=== PATIENT | female | born 1945 | race Caucasian/White ===

== ENCOUNTER → 2017-01-16 | Outpatient (CLI) | payer MEDICARE ==
[~2017-01-16] MED LIST: ASP81CT GT; ATEN-147 GT; SIMV20TA3 PO; TRIA1TAB2 PO
== END ==
LOC: RAD 10:14
PROVIDERS: ATTEND Nurse Practitioner Family
DX: Z12.31 Encounter for screening mammogram for malignant neoplasm of breast (principal)
CPT/HCPCS: 77067

== ENCOUNTER → 2018-01-29 | Outpatient (CLI) | payer MEDICARE ==
--- NOTE | 2018-01-29 12:19 | Diagnostic Imaging Report ---
Indication: Osteopenia. Comparison is made with prior DEXA study from 01/11/2016. Bone mineral analysis of the lumbar spine and both hips was performed. Bone mineral density lumbar spine L2-L4 is 1.199 with T score 0.0. This compares with 1.208 and 0.1. Bone mineral density left femoral neck 0.755 with T score -2.0. This compares with 0.801 and -1.7. Bone mineral density right femoral neck 0.748 with T score -2.1. This compares with 0.760 and -2.0. Impression: Normal bone mineral density of the lumbar spine with osteopenia of bilateral femoral necks. Dictated by: Dictated on workstation # [id number]
--- NOTE | 2018-01-29 14:23 | Diagnostic Imaging Report ---
INDICATION: Routine screening. Comparison is made with prior mammograms from 01/16/2017 and 01/11/2016. 2-D and 3-D bilateral screening mammography was performed with CAD. The current study was also evaluated with a Computer Aided Detection (CAD) system. FINDINGS: Both breasts are heterogeneously dense, limiting the sensitivity of mammography. The parenchymal pattern is stable. No mass or malignant-appearing microcalcifications are seen. The axillae are unremarkable. IMPRESSION: No mammographic features suspicious for malignancy are identified. ACR BI-RADS Category 1: Negative. Result letter will be mailed to the patient. Note: At least 10% of breast cancer is not imaged by mammography. Dictated by: Dictated on workstation # [id number]
== END ==
LOC: RAD 10:24
PROVIDERS: ATTEND Nurse Practitioner Family
DX: Z12.31 Encounter for screening mammogram for malignant neoplasm of breast (principal); M85.88 Other specified disorders of bone density and structure, other site
CPT/HCPCS: 77067; 77080

== ENCOUNTER 2018-11-11 05:52 | Outpatient (CLI) | payer MEDICARE ==
[~2018-11-11] VITALS: Ht 175.3 cm; Wt 72.1 kg
[2018-11-11] MEDS ORDERED: ATEN25TA PO (10:22)
[2018-11-11] MEDS ORDERED: AMLO5TAB9 PO (10:22)
[2018-11-11] MEDS ORDERED: SIMV20TA3 PO (10:22)
== END 2018-11-11 10:25 | disposition home or self-care (01) ==
LOC: PREOP 05:52
PROVIDERS: ATTEND Internal Medicine
DX: Z01.818 Encounter for other preprocedural examination (principal)

== ENCOUNTER 2018-11-13 07:00 | Day surgery (SDC) | payer MEDICARE ==
--- NOTE | 2018-11-09 04:44 | HISTORY AND PHYSICAL ---
DATE OF SERVICE: COLONOSCOPY HISTORY AND PHYSICAL HISTORY OF PRESENT ILLNESS: The patient is a 73-year-old white female referred by Dr. Dudley for screening colonoscopy. She has a past history of colon polyps and a family history of colon cancer. In this case was her mother who was diagnosed in her eighties. The patient last accomplished colonoscopy 5 years ago at which time no evidence for neoplasia was identified. Previous colonoscopy has had revealed some adenomatous polyps. PAST MEDICAL HISTORY: Significant for hypertension and hyperlipidemia with no known history of vascular disease. 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 She lives in [place] during the winter and returned to [place] for the summer with her . She remains physically active exercising at least 5 days a week. PAST SURGICAL HISTORY: Noncontributory. PHYSICAL EXAMINATION: GENERAL: Reveals a fit appearing white female in no acute distress. VITAL SIGNS: Weight stable at 159.4 pounds, blood pressure 140/70. HEENT: Unremarkable. Sclerae nonicteric. Oral cavity reveals Mallampati class 2 pharyngeal configuration with no erythema. CHEST: Clear to auscultation. CARDIOVASCULAR: Reveals a regular rate and rhythm without murmur, S3 or S4. ABDOMEN: Soft, supple without mass, organomegaly or tenderness. EXTREMITIES: Reveal no cyanosis, clubbing or edema. ASSESSMENT AND PLAN: The patient is set up for surveillance colonoscopy due to past history of colon polyps and the fact that her mother was diagnosed with colon cancer in her 80s. The patient was set up for 11/13/2018. Prep instructions with the Suprep kit were given and questions were answered. I thank you for the referral of this pleasant lady. Job ID: [id number] DocumentID: [id number] Dictated Date: 11/05/2018 18:03:22 Slip Laster Date: 11/05/2018 18:32:27 Dictated By: TOO LORENZO MD
[~2018-11-13] VITALS: Ht 175.3 cm; Wt 72.1 kg
[~2018-11-13 07:00] MED LIST changes: +AMLO5TAB9 PO; +ATEN25TA PO
[2018-11-13] MEDS ORDERED: D5 LR IV SOLUTION 1,000 ML IV ONE (07:10)
[2018-11-13] MEDS ORDERED: fentaNYL INJECTION 100 MCG/2 ML AMP ONE (07:27)
[2018-11-13] MEDS ORDERED: MIDAZOLAM 2 MG/2 ML (VERSED) VIAL ONE (07:27)
[2018-11-13] MEDS ORDERED: LIDOCAINE JELLY 2% 6 ML SYRINGE ONE (07:28)
[2018-11-13] MEDS ORDERED: D5 LR IV SOLUTION 1,000 ML IV STA (07:42)
[2018-11-13] MEDS ORDERED: LIDOCAINE JELLY 2% 6 ML SYRINGE MM PRN (07:45)
[2018-11-13] MEDS ORDERED: fentaNYL INJECTION 100 MCG/2 ML AMP IVP ONE (07:45)
[2018-11-13] MEDS ORDERED: MIDAZOLAM 2 MG/2 ML (VERSED) VIAL IVP ONE (07:45)
[2018-11-13 08:19] VITALS: BP 141/72
--- OUTSIDE RECORDS SUMMARY | 2018-11-13 08:20 | XMS REPORT | CCD ---
Author Author [facility] Organization [facility] Address [address] [place] [address] Phone Care Team Providers Care Cpc Name Role Phone PP Unavailable CCM Unavailable Summary Purpose Interface Exchange Insurance Providers Payer name Policy type / Coverage type Covered libertarian ID Effective Begin Date Effective End Date WPS Medicare Part B Medicare Part B [id number] Unknown Unknown [facility] Medicare Part B [id number] Unknown Unknown Family history Father Diagnosis Age At Onset Hypertension Unknown Mother Diagnosis Age At Onset Colon cancer Unknown Social History Social History Element Codes Description Effective Dates Marital status Unknown Phong 03/07/2015 Number of children Unknown 2 03/07/2015 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 03/07/2015 Number of years using tobacco Unknown 1 - 5 03/07/[address]: 842295 Currently drinks alcohol 03/07/2015 Frequency of drinks SNOMED CT: 423273401 1- 4 drinks per week 03/07/2015 Allergies, Adverse Reactions, Alerts Allergies, Adverse Reactions, Alerts data not found Past Medical History Illness Codes Condition Status Onset Date Resolved Date Otalgia, left ear ICD-9: 388.70 ICD-10: H92.02 Active 03/06/2016 Unknown Encounter for screening mammogram for malignant neoplasm of breast ICD-9: V76.12 ICD-10: Z12.31 Active 12/07/2015 Unknown Essential (primary) hypertension ICD-9: 401.1 ICD-10: I10 Active 12/05/2015 Unknown Mixed hyperlipidemia ICD- 9: 272.2 ICD-10: E78.2 Active 12/05/2015 Unknown Hyperlipidemia Unknown Active 03/07/2015 Unknown Hypertension Unknown Active 03/07/2015 Unknown Hyperlipidemia, unspecified ICD-9: 272.4 ICD-10: E78.5 Active 03/06/2015 Unknown Other secondary hypertension ICD-9: 401.9 ICD-10: I15.8 Active 03/06/2015 Unknown VACCIN FOR INFLUENZA ICD- 9: V04.81 Active 03/06/2015 Unknown Problems Condition Codes Effective Dates Condition Status Otalgia, left ear ICD-9: 388.70 ICD-10: H92.02 03/06/2016 Active Encounter for screening mammogram for malignant neoplasm of breast ICD-9: V76.12 ICD-10: Z12.31 12/07/2015 Active Essential (primary) hypertension ICD-9: 401.1 ICD-10: I10 12/05/2015 Active Mixed hyperlipidemia ICD- 9: 272.2 ICD-10: E78.2 12/05/2015 Active Hyperlipidemia Unknown 03/07/2015 Active Hypertension Unknown 03/07/2015 Active Hyperlipidemia, unspecified ICD-9: 272.4 ICD-10: E78.5 03/06/2015 Active Other secondary hypertension ICD-9: 401.9 ICD-10: I15.8 03/06/2015 Active VACCIN FOR INFLUENZA ICD- 9: V04.81 03/06/2015 Active Medications Medication Codes Instructions Start Date Stop Date Status Fill Instructions atenolol 25 mg tablet RxNorm: 797299 1 TABLET(S) PO DAILY 12/30/2016 06/27/2017 Active simvastatin 20 mg tablet RxNorm: 027817 1 TABLET(S) PO QHS 11/20/2016 08/16/2017 Active triamterene 37.5 mg-hydrochlorothiazide 25 mg tablet RxNorm: 811718 1/2 TABLET(S) PO DAILY 08/09/2016 02/04/2017 Active atenolol 25 mg tablet RxNorm: 646753 1 TABLET(S) PO DAILY 07/01/2016 12/27/2016 Inactive Kenalog 40 mg/mL suspension for injection RxNorm: 5085930 Milliliter(s) Inj 03/07/2016 03/07/2016 Inactive atenolol 25 mg tablet RxNorm: 073685 1 TABLET(S) PO DAILY 01/05/2016 06/30/2016 Inactive triamterene 37.5 mg-hydrochlorothiazide 25 mg tablet RxNorm: 489754 1/2 Tablet(s) PO daily 12/06/2015 06/02/2016 Inactive simvastatin 20 mg tablet RxNorm: 755791 1 Tablet(s) PO [facility] 11/30/2015 11/19/2016 Inactive atenolol 25 mg tablet RxNorm: 600131 TAKE 1 TABLET BY MOUTH EVERY DAY 10/31/2015 04/27/2016 Inactive atenolol 25 mg tablet RxNorm: 287903 1 Tablet(s) PO daily 10/31/2015 10/30/2015 Inactive triamterene 37.5 mg-hydrochlorothiazide 25 mg tablet RxNorm: 872410 1 Tablet(s) PO daily 10/31/2015 10/30/2015 Inactive triamterene 37.5 mg-hydrochlorothiazide 25 mg tablet RxNorm: 433559 TAKE 1 TABLET BY MOUTH EVERY MORNING 10/31/2015 12/05/2015 Inactive triamterene 37.5 mg-hydrochlorothiazide 25 mg tablet RxNorm: 303854 1 Tablet(s) PO daily 10/31/2015 10/30/2015 Inactive atenolol 25 mg tablet RxNorm: 747397 1 Tablet(s) PO daily 03/07/2015 10/30/2015 Inactive Vitamin C 500 mg tablet RxNorm: 336448 1 Tablet(s) PO No Start Date Active vitamin E (dl, acetate) 400 unit capsule RxNorm: 644864 1 Capsule(s) PO daily No Start Date Active Multiple Vitamin oral RxNorm: 51915 oral No Start Date Active simvastatin 20 mg tablet RxNorm: 340913 1 Tablet(s) PO daily No Start Date 11/29/2015 Inactive Glucosamine Chondroitin Maximum Strength 500 mg-400 mg capsule RxNorm: 1 Capsule(s) PO daily No Start Date Active Vitamin D3 1,000 unit tablet RxNorm: 025436 Tablet(s) PO No Start Date Active Vitamin B-12 1,000 mcg tablet RxNorm: 908684 1 Tablet(s) PO daily No Start Date Active CoQ-10 oral RxNorm: 72769 oral No Start Date Active Calcium 600 + D(3) 600 mg (1,500 mg)-400 unit tablet RxNorm: 762962 Tablet(s) PO No Start Date Active Maxzide-25mg oral RxNorm: 91403 oral No Start Date 12/06/2015 Inactive atenolol 25 mg tablet RxNorm: 145662 1 Tablet(s) PO daily No Start Date 03/06/2015 Inactive Medication Administered Medication Codes Instructions Start Date Status Kenalog 40 mg/mL suspension for injection RxNorm: 4595858 Milliliter 03/07/2016 No longer Active Immunizations Vaccine Codes Date Status Influenza CVX: 141 03/07/2015 completed Assessments Condition Codes Effective Dates Otalgia, left ear ICD-10: H92.02 ICD-9: 388.70 03/07/2016 Encounter for screening mammogram for malignant neoplasm of breast ICD-10: Z12.31 ICD-9: V76.12 12/08/2015 Essential (primary) hypertension ICD-10: I10 ICD-9: 401.1 12/06/2015 Mixed hyperlipidemia ICD-10: E78.2 ICD-9: 272.2 12/06/2015 Other secondary hypertension ICD-10: I15.8 ICD-9: 401.9 03/07/2015 Hyperlipidemia, unspecified ICD-10: E78.5 ICD-9: 272.4 03/07/2015 VACCIN FOR INFLUENZA ICD-9: V04.81 03/07/2015 Reason For Visit Reason For Visit Effective Dates Notes earache 03/07/2016 hypertension 12/06/2015 hypertension 03/07/2015 Results Observation Observation Code Item Item Code Result Date Comp Metabolic Wvb298 NA 138 mEq/L 12/07/2015 Comp Metabolic Zyn261 K 4.4 mEq/L 12/07/2015 Comp Metabolic Fjc189 CL 103 mEq/L 12/07/2015 Comp Metabolic Qev203 CO2 30.0 mEq/L 12/07/2015 Comp Metabolic Fkq327 ANION GAP 9 12/07/2015 Comp Metabolic Uil712 GLUCOSE 84 mg/dL 12/07/2015 Comp Metabolic Inc691 Creat 1.0 mg/dL 12/07/2015 Comp Metabolic Xhh247 eGFR 58 ml/min/1.73m2 12/07/2015 Comp Metabolic Ikw213 BUN 16 mg/dL 12/07/2015 Comp Metabolic Als077 B/C Ratio 16.0 Ratio 12/07/2015 Comp Metabolic Vcf517 CALCIUM 9.0 mg/dL 12/07/2015 Comp Metabolic Pwh679 ALK PHOS 59 U/L 12/07/2015 Comp Metabolic Loz300 AST(SGOT) 18 U/L 12/07/2015 Comp Metabolic Dab803 ALT(SGPT) 14 U/L 12/07/2015 Comp Metabolic Vzi305 BILI T 0.5 mg/dL 12/07/2015 Comp Metabolic Ocf208 ALBUMIN 3.8 g/dL 12/07/2015 Comp Metabolic Maa698 TPRO 6.2 g/dL 12/07/2015 Comp Metabolic Ofp428 GLOB 2.4 g/dL 12/07/2015 Comp Metabolic Ukt858 A/G Ratio 1.5 Ratio 12/07/2015 Comp Metabolic Jeu442 Osmo 276 mOsmo 12/07/2015 Lipid Ord30 CHOL 168 mg/dL 12/07/2015 Lipid Ord30 HDL 68.0 mg/dl 12/07/2015 Lipid Ord30 TRIG 74 mg/dL 12/07/2015 Lipid Ord30 LDL 85 mg/dL 12/07/2015 Lipid Ord30 C/HDL 2.5 Ratio 12/07/2015 Cbc With Differential Ord2 WBC 5.42 K/ul 12/07/2015 Cbc With Differential Ord2 RBC 3.97 M/ul 12/07/2015 Cbc With Differential Ord2 HGB 11.8 g/dl 12/07/2015 Cbc With Differential Ord2 Neut% 61.9 % 12/07/2015 Cbc With Differential Ord2 HCT 36.5 % 12/07/2015 Cbc With Differential Ord2 MCV 91.9 fl 12/07/2015 Cbc With Differential Ord2 Lymph% 26.0 % 12/07/2015 Cbc With Differential Ord2 MCH 29.7 pg 12/07/2015 Cbc With Differential Ord2 [place]% 9.4 % 12/07/2015 Cbc With Differential Ord2 MCHC 32.3 pg 12/07/2015 Cbc With Differential Ord2 Eos% 2.0 % 12/07/2015 Cbc With Differential Ord2 PLT 363 K/ul 12/07/2015 Cbc With Differential Ord2 Baso% 0.7 % 12/07/2015 Cbc With Differential Ord2 RDW 13.0 % 12/07/2015 Cbc With Differential Ord2 Neut ABS# 3.35 K/ul 12/07/2015 Cbc With Differential Ord2 Lymph ABS# 1.41 K/ul 12/07/2015 Cbc With Differential Ord2 [place] ABS# 0.5 K/ul 12/07/2015 Cbc With Differential Ord2 Eos ABS# 0.1 K/ul 12/07/2015 Cbc With Differential Ord2 Baso ABS# 0.0 K/ul 12/07/2015 Tsh Ord6 hTSH II 1.10 uIU/mL 12/07/2015 Tsh Ord6 hTSH II 0.87 uIU/mL 03/07/2015 Lipid Ord30 CHOL 204 mg/dL 03/07/2015 Lipid Ord30 HDL 86.0 mg/dl 03/07/2015 Lipid Ord30 TRIG 95 mg/dL 03/07/2015 Lipid Ord30 LDL 99 mg/dL 03/07/2015 Lipid Ord30 C/HDL 2.4 Ratio 03/07/2015 Comp Metabolic Iyn887 NA 136 mEq/L 03/07/2015 Comp Metabolic Jql339 K 4.0 mEq/L 03/07/2015 Comp Metabolic Zrz338 CL 100 mEq/L 03/07/2015 Comp Metabolic Dtj364 CO2 31.0 mEq/L 03/07/2015 Comp Metabolic Ckb449 ANION GAP 9 03/07/2015 Comp Metabolic Wmg590 GLUCOSE 93 mg/dL 03/07/2015 Comp Metabolic Hne450 Creat 1.1 mg/dL 03/07/2015 Comp Metabolic Oqs138 eGFR 55 ml/min/1.73m2 03/07/2015 Comp Metabolic Nal864 BUN 16 mg/dL 03/07/2015 Comp Metabolic Zjp295 B/C Ratio 15.2 Ratio 03/07/2015 Comp Metabolic Whc285 CALCIUM 9.7 mg/dL 03/07/2015 Comp Metabolic Xwn365 ALK PHOS 63 U/L 03/07/2015 Comp Metabolic Dth809 AST(SGOT) 21 U/L 03/07/2015 Comp Metabolic Gly352 ALT(SGPT) 16 U/L 03/07/2015 Comp Metabolic Yen975 BILI T 0.7 mg/dL 03/07/2015 Comp Metabolic Lhj326 ALBUMIN 4.3 g/dL 03/07/2015 Comp Metabolic Plo524 TPRO 7.0 g/dL 03/07/2015 Comp Metabolic Edc942 GLOB 2.7 g/dL 03/07/2015 Comp Metabolic Bib607 A/G Ratio 1.6 Ratio 03/07/2015 Comp Metabolic Baq342 Osmo 273 mOsmo 03/07/2015 Cbc With Differential Ord2 WBC 6.5 K/uL 03/07/2015 Cbc With Differential Ord2 LYM 2.1 K/uL 03/07/2015 Cbc With Differential Ord2 LYM% 32.0 % 03/07/2015 Cbc With Differential Ord2 NEUT/GRAN 4.1 K/uL 03/07/2015 Cbc With Differential Ord2 NEUT/GRAN % 62.7 % 03/07/2015 Cbc With Differential Ord2 MID 0.3 K/uL 03/07/2015 Cbc With Differential Ord2 MID% 5.3 % 03/07/2015 Cbc With Differential Ord2 RBC 4.41 M/uL 03/07/2015 Cbc With Differential Ord2 HGB 12.9 g/dL 03/07/2015 Cbc With Differential Ord2 HCT 40.8 % 03/07/2015 Cbc With Differential Ord2 MCV 93 fL 03/07/2015 Cbc With Differential Ord2 MCH 29 pg 03/07/2015 Cbc With Differential Ord2 MCHC 32 g/dL 03/07/2015 Cbc With Differential Ord2 PLT 353 K/uL 03/07/2015 Cbc With Differential Ord2 RDW 13.2 % 03/07/2015 Review of Systems System Result Effective Dates Constitutional No recent illness 03/07/2016 Constitutional No night sweats 03/07/2016 Constitutional No anorexia 03/07/2016 Constitutional No chills 03/07/2016 Constitutional No diaphoresis 03/07/2016 Constitutional No fatigue 03/07/2016 Constitutional No fever 03/07/2016 Constitutional No insomnia 03/07/2016 Constitutional No malaise 03/07/2016 Constitutional No weight loss 03/07/2016 Constitutional No weight gain 03/07/2016 Eyes No eye discharge 03/07/2016 Eyes No eye erythema 03/07/2016 Ears/Nose/Throat/Neck No dizziness 03/07/2016 Ears/Nose/Throat/Neck No headache 03/07/2016 Ears/Nose/Throat/Neck No nasal discharge 03/07/2016 Ears/Nose/Throat/Neck otalgia 03/07/2016 Cardiovascular No chest pain/pressure 03/07/2016 Respiratory No cough 03/07/2016 Gastrointestinal No abdominal pain 03/07/2016 Gastrointestinal No constipation 03/07/2016 Gastrointestinal No diarrhea 03/07/2016 Genitourinary/Nephrology No dysuria 03/07/2016 Dermatologic No rash 03/07/2016 Dermatologic No sores 03/07/2016 Neurologic No dizziness 03/07/2016 Neurologic No headache 03/07/2016 Musculoskeletal No stiffness 03/07/2016 Musculoskeletal No swelling 03/07/2016 Cardiovascular No syncope 03/07/2016 Cardiovascular No fatigue 03/07/2016 Respiratory No dyspnea 03/07/2016 Constitutional No recent illness 12/06/2015 Constitutional No chills 12/06/2015 Constitutional No fatigue 12/06/2015 Constitutional No fever 12/06/2015 Constitutional No insomnia 12/06/2015 Constitutional No malaise 12/06/2015 Eyes No blindness 12/06/2015 Eyes No vision change 12/06/2015 Ears/Nose/Throat/Neck No dental pain 12/06/2015 Ears/Nose/Throat/Neck No dizziness 12/06/2015 Ears/Nose/Throat/Neck No dysphagia 12/06/2015 Ears/Nose/Throat/Neck No headache 12/06/2015 Ears/Nose/Throat/Neck No hearing loss 12/06/2015 Ears/Nose/Throat/Neck No nasal allergies 12/06/2015 Ears/Nose/Throat/Neck No sore throat 12/06/2015 Ears/Nose/Throat/Neck No postnasal drip 12/06/2015 Ears/Nose/Throat/Neck No sinus congestion 12/06/2015 Cardiovascular No chest pain/pressure 12/06/2015 Cardiovascular No dyspnea 12/06/2015 Cardiovascular No edema 12/06/2015 Cardiovascular No exercise intolerance 12/06/2015 Cardiovascular No fatigue 12/06/2015 Cardiovascular No near-syncope/dizziness 12/06/2015 Respiratory No chest tightness 12/06/2015 Respiratory No cough 12/06/2015 Respiratory No dyspnea 12/06/2015 Respiratory No pedal edema 12/06/2015 Gastrointestinal No abdominal pain 12/06/2015 Gastrointestinal No constipation 12/06/2015 Gastrointestinal No diarrhea 12/06/2015 Gastrointestinal No gastroesophageal reflux 12/06/2015 Gastrointestinal No nausea 12/06/2015 Gastrointestinal No vomiting 12/06/2015 Genitourinary/Nephrology No dysuria 12/06/2015 Genitourinary/Nephrology No nocturia 12/06/2015 Genitourinary/Nephrology No urinary incontinence 12/06/2015 Musculoskeletal No stiffness 12/06/2015 Musculoskeletal No swelling 12/06/2015 Musculoskeletal No muscle weakness 12/06/2015 Musculoskeletal No myalgias 12/06/2015 Dermatologic mole change 12/06/2015 Dermatologic No rash 12/06/2015 Dermatologic No sores 12/06/2015 Dermatologic No scar 12/06/2015 Neurologic No dizziness 12/06/2015 Neurologic No headache 12/06/2015 Neurologic No neck pain 12/06/2015 Neurologic No syncope 12/06/2015 Psychiatric No anxiety 12/06/2015 Psychiatric No depression 12/06/2015 Constitutional No recent illness 03/07/2015 Constitutional No chills 03/07/2015 Constitutional No fatigue 03/07/2015 Constitutional No fever 03/07/2015 Constitutional No insomnia 03/07/2015 Constitutional No malaise 03/07/2015 Eyes No blindness 03/07/2015 Eyes No vision change 03/07/2015 Ears/Nose/Throat/Neck No dental pain 03/07/2015 Ears/Nose/Throat/Neck No dizziness 03/07/2015 Ears/Nose/Throat/Neck No dysphagia 03/07/2015 Ears/Nose/Throat/Neck No headache 03/07/2015 Ears/Nose/Throat/Neck No hearing loss 03/07/2015 Ears/Nose/Throat/Neck No nasal allergies 03/07/2015 Ears/Nose/Throat/Neck No sore throat 03/07/2015 Ears/Nose/Throat/Neck No postnasal drip 03/07/2015 Ears/Nose/Throat/Neck No sinus congestion 03/07/2015 Cardiovascular No chest pain/pressure 03/07/2015 Cardiovascular No dyspnea 03/07/2015 Cardiovascular No edema 03/07/2015 Cardiovascular No exercise intolerance 03/07/2015 Cardiovascular No fatigue 03/07/2015 Cardiovascular No near-syncope/dizziness 03/07/2015 Respiratory No chest tightness 03/07/2015 Respiratory No cough 03/07/2015 Respiratory No dyspnea 03/07/2015 Respiratory No pedal edema 03/07/2015 Gastrointestinal No abdominal pain 03/07/2015 Gastrointestinal No constipation 03/07/2015 Gastrointestinal No diarrhea 03/07/2015 Gastrointestinal No gastroesophageal reflux 03/07/2015 Gastrointestinal No nausea 03/07/2015 Gastrointestinal No vomiting 03/07/2015 Genitourinary/Nephrology No dysuria 03/07/2015 Genitourinary/Nephrology No nocturia 03/07/2015 Genitourinary/Nephrology No urinary incontinence 03/07/2015 Musculoskeletal No stiffness 03/07/2015 Musculoskeletal No swelling 03/07/2015 Musculoskeletal No muscle weakness 03/07/2015 Musculoskeletal No myalgias 03/07/2015 Dermatologic No rash 03/07/2015 Dermatologic No sores 03/07/2015 Dermatologic No scar 03/07/2015 Neurologic No dizziness 03/07/2015 Neurologic No headache 03/07/2015 Neurologic No neck pain 03/07/2015 Neurologic No syncope 03/07/2015 Psychiatric No anxiety 03/07/2015 Psychiatric No depression 03/07/2015 Dermatologic mole change 03/07/2015 Physical Exam Exam Name System Name Item Name Status Result Effective Dates Notes Full Exam - ENT Constitutional general appearance Overall: in no acute distress 03/07/2016 None Full Exam - ENT Eyes ocular motility Overall: normal gaze alignment 03/07/2016 None Full Exam - ENT Eyes ocular motility Overall: extraocular movement intact 03/07/2016 None Full Exam - ENT Ears/Nose/Throat otoscopic exam Overall: external auditory canals normal 03/07/2016 None Full Exam - ENT Neck inspection of neck Overall: normal appearance 03/07/2016 None Full Exam - ENT Respiratory inspection Overall: no retractions 03/07/2016 None Full Exam - ENT Respiratory inspection Overall: normal rate 03/07/2016 None Full Exam - ENT Cardiovascular auscultation of heart Overall: regular rate 03/07/2016 None Full Exam - ENT Cardiovascular auscultation of heart Overall: normal heart sounds 03/07/2016 None Full Exam - ENT Cardiovascular auscultation of heart Overall: no murmurs 03/07/2016 None Full Exam - ENT Abdomen abdominal exam Overall: normal bowel sounds 03/07/2016 None Full Exam - ENT Integument inspection of skin Overall: no rash, lesions 03/07/2016 None Full Exam - ENT Neurologic mood and affect Overall: normal affect 03/07/2016 None Full Exam - ENT Neurologic mood and affect Overall: normal mood 03/07/2016 None Full Exam - ENT Ears/Nose/Throat otoscopic exam Otorrhea: absent 03/07/2016 None Full Exam - ENT Ears/Nose/Throat otoscopic exam Perforation: absent 03/07/2016 None Full Exam - ENT Ears/Nose/Throat otoscopic exam Right tympanic membrane: intact 03/07/2016 None Full Exam - ENT Ears/Nose/Throat otoscopic exam Right tympanic membrane: mobile 03/07/2016 None Full Exam - ENT Ears/Nose/Throat otoscopic exam Left external auditory canal: minimal cerumen 03/07/2016 None Full Exam - ENT Ears/Nose/Throat otoscopic exam Left external auditory canal: nontender 03/07/2016 None Full Exam - ENT Ears/Nose/Throat otoscopic exam Right external auditory canal: minimal cerumen 03/07/2016 None Full Exam - ENT Ears/Nose/Throat otoscopic exam Right external auditory canal: nontender 03/07/2016 None Full Exam - ENT Respiratory inspection Retractions: absent 03/07/2016 None Full Exam - ENT Cardiovascular auscultation of heart Rate: normal rate 03/07/2016 None Full Exam - ENT Cardiovascular auscultation of heart Rhythm: regular rhythm 03/07/2016 None Full Exam - ENT Abdomen abdominal exam Overall: no tenderness 03/07/2016 None Full Exam - ENT Ears/Nose/Throat otoscopic exam Left tympanic membrane: air-fluid level 03/07/2016 None Full Exam - General 1994 Constitutional general appearance Development: well developed 12/06/2015 None Full Exam - General 1994 Constitutional general appearance Development: appears stated age 0612/06/2015 None Full Exam - General 1994 Constitutional general appearance Hygiene/Attention to Grooming: good hygiene 12/06/2015 None Full Exam - General 1994 Eyes conjunctiva/eyelids Overall: conjunctiva clear 12/06/2015 None Full Exam - General 1994 Eyes conjunctiva/eyelids Overall: cornea clear 12/06/2015 None Full Exam - General 1994 Eyes conjunctiva/eyelids Overall: eyelids normal 12/06/2015 None Full Exam - General 1994 Eyes pupils and irises Overall: pupils equal, round, reactive to light and accomodation 12/06/2015 None Full Exam - General 1994 Ears/Nose/Throat otoscopic exam Overall: external auditory canals clear 12/06/2015 None Full Exam - General 1994 Ears/Nose/Throat otoscopic exam Overall: tympanic membranes clear 12/06/2015 None Full Exam - General 1994 Ears/Nose/Throat lips/teeth/gingiva Overall: benign lips 12/06/2015 None Full Exam - General 1994 Ears/Nose/Throat lips/teeth/gingiva Overall: normal dentition 12/06/2015 None Full Exam - General 1994 Ears/Nose/Throat oral cavity/pharynx/larynx Overall: oral mucosa clear 12/06/2015 None Full Exam - General 1994 Ears/Nose/Throat oral cavity/pharynx/larynx Overall: oropharyngeal mucosa clear 12/06/2015 None Full Exam - General 1994 Ears/Nose/Throat oral cavity/pharynx/larynx Overall: hypopharynx benign 12/06/2015 None Full Exam - General 1994 Ears/Nose/Throat oral cavity/pharynx/larynx Overall: no masses 12/06/2015 None Full Exam - General 1994 Respiratory auscultation Overall: breath sounds clear bilaterally 12/06/2015 None Full Exam - General 1994 Respiratory respiratory effort/rhythm Overall: no retractions 12/06/2015 None Full Exam - General 1994 Respiratory respiratory effort/rhythm Overall: normal rate 12/06/2015 None Full Exam - General 1994 Cardiovascular extremities Overall: no clubbing 12/06/2015 None Full Exam - General 1994 Cardiovascular auscultation of heart Overall: regular rate 12/06/2015 None Full Exam - General 1994 Cardiovascular auscultation of heart Overall: normal heart sounds 12/06/2015 None Full Exam - General 1994 Abdomen abdominal exam Overall: no tenderness 12/06/2015 None Full Exam - General 1994 Abdomen abdominal exam Overall: normal bowel sounds 12/06/2015 None Full Exam - General 1994 Lymphatic neck nodes Overall: anterior cervical chain benign 12/06/2015 None Full Exam - General 1994 Lymphatic neck nodes Overall: posterior cervical chain benign 12/06/2015 None Full Exam - General 1994 Musculoskeletal spine, ribs and pelvis Overall: spine benign 12/06/2015 None Full Exam - General 1994 Musculoskeletal spine, ribs and pelvis Overall: sacroiliac joint benign 12/06/2015 None Full Exam - General 1994 Musculoskeletal spine, ribs and pelvis Overall: good posture 12/06/2015 None Full Exam - General 1994 Musculoskeletal head and neck Overall: head atraumatic 12/06/2015 None Full Exam - General 1994 Musculoskeletal head and neck Overall: cervical spine benign 12/06/2015 None Full Exam - General 1994 Integument inspection of skin Overall: few scattered moles, no gross abnormalities 12/06/2015 None Full Exam - General 1994 Neurologic deep tendon reflexes Overall: deep tendon reflexes intact 12/06/2015 None Full Exam - General 1994 Neurologic cranial nerves Overall: crainial nerves 2 - 12 grossly intact 12/06/2015 None Full Exam - General 1994 Psychiatric orientation/consciousness Overall: oriented to person, place and time 12/06/2015 None Full Exam - General 1994 Psychiatric mood and affect Overall: normal mood and affect 12/06/2015 None Full Exam - General 1994 Constitutional general appearance Development: well developed 03/07/2015 None Full Exam - General 1994 Constitutional general appearance Development: appears stated age 0903/07/2015 None Full Exam - General 1994 Constitutional general appearance Hygiene/Attention to Grooming: good hygiene 03/07/2015 None Full Exam - General 1994 Eyes conjunctiva/eyelids Overall: conjunctiva clear 03/07/2015 None Full Exam - General 1994 Eyes conjunctiva/eyelids Overall: cornea clear 03/07/2015 None Full Exam - General 1994 Eyes conjunctiva/eyelids Overall: eyelids normal 03/07/2015 None Full Exam - General 1994 Eyes pupils and irises Overall: pupils equal, round, reactive to light and accomodation 03/07/2015 None Full Exam - General 1994 Ears/Nose/Throat otoscopic exam Overall: external auditory canals clear 03/07/2015 None Full Exam - General 1994 Ears/Nose/Throat otoscopic exam Overall: tympanic membranes clear 03/07/2015 None Full Exam - General 1994 Ears/Nose/Throat lips/teeth/gingiva Overall: benign lips 03/07/2015 None Full Exam - General 1994 Ears/Nose/Throat lips/teeth/gingiva Overall: normal dentition 03/07/2015 None Full Exam - General 1994 Ears/Nose/Throat oral cavity/pharynx/larynx Overall: oral mucosa clear 03/07/2015 None Full Exam - General 1994 Ears/Nose/Throat oral cavity/pharynx/larynx Overall: oropharyngeal mucosa clear 03/07/2015 None Full Exam - General 1994 Ears/Nose/Throat oral cavity/pharynx/larynx Overall: hypopharynx benign 03/07/2015 None Full Exam - General 1994 Ears/Nose/Throat oral cavity/pharynx/larynx Overall: no masses 03/07/2015 None Full Exam - General 1994 Respiratory auscultation Overall: breath sounds clear bilaterally 03/07/2015 None Full Exam - General 1994 Respiratory respiratory effort/rhythm Overall: no retractions 03/07/2015 None Full Exam - General 1994 Respiratory respiratory effort/rhythm Overall: normal rate 03/07/2015 None Full Exam - General 1994 Cardiovascular extremities Overall: no clubbing 03/07/2015 None Full Exam - General 1994 Cardiovascular auscultation of heart Overall: regular rate 03/07/2015 None Full Exam - General 1994 Cardiovascular auscultation of heart Overall: normal heart sounds 03/07/2015 None Full Exam - General 1994 Abdomen abdominal exam Overall: no tenderness 03/07/2015 None Full Exam - General 1994 Abdomen abdominal exam Overall: normal bowel sounds 03/07/2015 None Full Exam - General 1994 Lymphatic neck nodes Overall: anterior cervical chain benign 03/07/2015 None Full Exam - General 1994 Lymphatic neck nodes Overall: posterior cervical chain benign 03/07/2015 None Full Exam - General 1994 Musculoskeletal spine, ribs and pelvis Overall: spine benign 03/07/2015 None Full Exam - General 1994 Musculoskeletal spine, ribs and pelvis Overall: sacroiliac joint benign 03/07/2015 None Full Exam - General 1994 Musculoskeletal spine, ribs and pelvis Overall: good posture 03/07/2015 None Full Exam - General 1994 Musculoskeletal head and neck Overall: head atraumatic 03/07/2015 None Full Exam - General 1994 Musculoskeletal head and neck Overall: cervical spine benign 03/07/2015 None Full Exam - General 1994 Integument inspection of skin Overall: few scattered moles, no gross abnormalities 03/07/2015 None Full Exam - General 1994 Neurologic deep tendon reflexes Overall: deep tendon reflexes intact 03/07/2015 None Full Exam - General 1994 Neurologic cranial nerves Overall: crainial nerves 2 - 12 grossly intact 03/07/2015 None Full Exam - General 1994 Psychiatric orientation/consciousness Overall: oriented to person, place and time 03/07/2015 None Full Exam - General 1994 Psychiatric mood and affect Overall: normal mood and affect 03/07/2015 None Procedures Procedure Codes Date TRIAMCINOLONE ACET INJ NOS CPT-4: [id number] 03/07/2016 ADMIN INFLUENZA VIRUS VAC Formatting Model/CDA Sections, Assigned to CPT- 4: K2935Kimppth 03/07/2015 FLU VACC 4 ISIDORO 3 YRS PLUS IM SNOMED CT: 76314509 CPT-4: 33577Ndldbbg 03/07/2015 Vital Signs Date Vital 03/07/2016 Blood Pressure 1: 130/92 Code: 8480-6 Heart Rate 1: 72 bpm Height: Respiratory Rate: 16 bpm SpO2: 97% Temperature: 36.6 (C) / 97.9 (F) Weight: 12/06/2015 Blood Pressure 1: 122/70 Code: 8480-6 BMI: 24.9 Code: 92421-3 Heart Rate 1: 63 bpm Height: 5'8" SpO2: 97% Weight: 166 lbs 03/07/2015 Blood Pressure 1: 130/76 Code: 8480-6 BMI: 25.4 Code: 15531-9 Heart Rate 1: 58 bpm Height: 5'8" SpO2: 99% Weight: 169 lbs 5 oz Functional Status No Functional Status data History of Present Illness Symptom Name Status Result Effective Date Notes earache Severity moderate 03/07/2016 None earache Frequency of Episodes decreasing 03/07/2016 None earache Length of Episodes 1 days 03/07/2016 None earache Location left ear 03/07/2016 None earache Quality sharp pain 03/07/2016 None earache Onset and Resolution ongoing 03/07/2016 None earache Onset of Symptom 1 days ago 03/07/2016 None earache Alleviating Factors medication 03/07/2016 APAP 1000mg BID earache Triggers no known triggers 03/07/2016 sharp pain comes and goes within seconds hypertension Onset of Symptom during adulthood 12/06/2015 None hypertension Blood Pressure Values not checking blood pressure at home 12/06/2015 None hypertension Pertinent Findings Denies dizziness 12/06/2015 None hypertension Pertinent Findings Denies edema 12/06/2015 None hypertension Onset and Resolution ongoing 12/06/2015 None hypertension Pertinent Findings Denies dyspnea 12/06/2015 None hypertension Alleviating Factors medication 12/06/2015 None hyperlipidemia Onset and Resolution gradual in onset 12/06/2015 None hyperlipidemia Onset and Resolution ongoing 12/06/2015 None hyperlipidemia Onset of Symptom during adulthood 12/06/2015 None hyperlipidemia Alleviating Factors medication 12/06/2015 None hyperlipidemia Exacerbating Factors diet 12/06/2015 None hypertension Quality stable 12/06/2015 None hypertension Onset of Symptom during adulthood 03/07/2015 None hypertension Blood Pressure Values not checking blood pressure at home 03/07/2015 None hypertension Pertinent Findings Denies dizziness 03/07/2015 None hypertension Pertinent Findings Denies edema 03/07/2015 None hyperlipidemia Onset of Symptom 6 years ago 03/07/2015 None Advance Directives No Advance Directive data Encounters Encounter Performer Location Codes Date ([id number]) 11435 EST. PATIENT, LEVEL III Diagnosis: Otalgia, left ear[ICD10: H92.02] Mary Dudley MD, [facility] CPT- 4: 52989 03/07/2016 ([id number]) 97561 EST. PATIENT, LEVEL III Diagnosis: Essential (primary) hypertension[ICD10: I10] Diagnosis: Mixed hyperlipidemia[ICD10: E78.2] [facility] CPT- 4: 91909 12/06/2015 ([id number]) OFFICE VISIT, NEW - LEVEL 4 Diagnosis: Other secondary hypertension[ICD10: I15.8] Diagnosis: Hyperlipidemia, unspecified[ICD10: E78.5] [facility] CPT-4: 72318 03/07/2015 Plan of Care Planned Activity Notes Codes Status Date Visit Plan: Left earache-suspect trigeminal neuralgia-kenalog injection today in the office-RX for oral prednisone taper provided and instructed on use-call friday with update on symptoms-patient verbalized understanding of plan. 03/07/2016 Appointment: Mary Michael WPtel: [phone] [phone] (10 min) Simple 03/07/2016 Patient Education: Patient Medication Summary Completed 03/07/2016 Patient Education: Patient Medication Summary Completed 12/08/2015 Care Plan: SCREENINGMAMMOGRAPHYDIGITAL LOINC : 66377-0 Pending 12/08/2015 Visit Plan: Hypertension - well controlled - continue with current medications, continue with no added salt diet. Pt has been encouraged to exercise daily.The pt has been advised to call the office if there are any acute concerns about change in blood pressure readings at home.Hyperlipidemia - pt has been counseled about appropriate diet, exercise, and need for low fat food choices. I have discussed the need for the patient to take medications as prescribed. If the patient has negative side effects from the medication, they are to CALL the office and not abruptly discontinue the medication without discussion with a practitioner in the office. We will check labs in 3-6 months for follow up on the patient's chronic medical problem and to assure normal liver response to medications. 12/06/2015 Patient Education: Patient Medication Summary Completed 12/06/2015 App[facility]ment: [facility] [phone] [facility] (15 min) Moderate 11/22/2015 Visit Plan: Hypertension - well controlled - continue with current medications, continue with no added salt diet. Pt has been encouraged to exercise daily.The pt has been advised to call the office if there are any acute concerns about change in blood pressure readings at home.Hyperlipidemia - pt has been counseled about appropriate diet, exercise, and need for low fat food choices. I have discussed the need for the patient to take medications as prescribed. If the patient has negative side effects from the medication, they are to CALL the office and not abruptly discontinue the medication without discussion with a practitioner in the office. We will check labs in 3-6 months for follow up on the patient's chronic medical problem and to assure normal liver response to medications. 03/07/2015 Appointment: Ethel Dudley WPtel: [facility] [place] New Patient 03/07/2015 Patient Education: Patient Medication Summary Completed 03/07/2015 Patient Education: Hypertension Completed 03/07/2015 Instructions Comment . Hypertension - well controlled - continue with current medications, continue with no added salt diet. Pt has been encouraged to exercise daily. The pt has been advised to call the office if there are any acute concerns about change in blood pressure readings at home. Hyperlipidemia - pt has been counseled about appropriate diet, exercise, and need for low fat food choices. I have discussed the need for the patient to take medications as prescribed. If the patient has negative side effects from the medication, they are to CALL the office and not abruptly discontinue the medication without discussion with a practitioner in the office. We will check labs in 3-6 months for follow up on the patient's chronic medical problem and to assure normal liver response to medications. . Hypertension - well controlled - continue with current medications, continue with no added salt diet. Pt has been encouraged to exercise daily. The pt has been advised to call the office if there are any acute concerns about change in blood pressure readings at home. Hyperlipidemia - pt has been counseled about appropriate diet, exercise, and need for low fat food choices. I have discussed the need for the patient to take medications as prescribed. If the patient has negative side effects from the medication, they are to CALL the office and not abruptly discontinue the medication without discussion with a practitioner in the office. We will check labs in 3-6 months for follow up on the patient's chronic medical problem and to assure normal liver response to medications. Kenalog Injection OTC antihistamine . Left earache-suspect trigeminal neuralgia-kenalog injection today in the office- RX for oral prednisone taper provided and instructed on use-call friday with update on symptoms-patient verbalized understanding of plan.
--- OUTSIDE RECORDS SUMMARY | 2018-11-13 08:21 | XMS REPORT | CCD ---
Author Author [facility] Organization [facility] Address [address] [place] [address] Phone Care Team Providers Care Director Oracle Name Role Phone PP Unavailable CCM Unavailable Summary Purpose Interface Exchange Insurance Providers Payer name Policy type / Coverage type Covered democrat ID Effective Begin Date Effective End Date WPS Medicare Part B Medicare Part B [id number] Unknown Unknown [facility] Medicare Part B [id number] Unknown Unknown Family history Father Diagnosis Age At Onset Hypertension Unknown Mother Diagnosis Age At Onset Colon cancer Unknown Social History Social History Element Codes Description Effective Dates Marital status Unknown Phong 03/07/2015 Number of children Unknown 2 03/07/2015 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 03/07/2015 Number of years using tobacco Unknown 1 - 5 03/07/[address]: 730987 Currently drinks alcohol 03/07/2015 Frequency of drinks SNOMED CT: 610971613 1- 4 drinks per week 03/07/2015 Allergies, [...] Start Date Stop Date Status Fill Instructions simvastatin 20 mg tablet RxNorm: 895709 1 TABLET(S) PO QHS 11/20/2016 08/16/2017 Active triamterene 37.5 mg-hydrochlorothiazide 25 mg tablet RxNorm: 464544 1/2 TABLET(S) PO DAILY 08/09/2016 02/04/2017 Active atenolol 25 mg tablet RxNorm: 577945 1 TABLET(S) PO DAILY 07/01/2016 12/27/2016 Active Kenalog 40 mg/mL suspension for injection RxNorm: 7133599 Milliliter(s) Inj 03/07/2016 03/07/2016 Inactive atenolol 25 mg tablet RxNorm: 132696 1 TABLET(S) PO DAILY 01/05/2016 06/30/2016 Inactive triamterene 37.5 mg-hydrochlorothiazide 25 mg tablet RxNorm: 690161 1/2 Tablet(s) PO daily 12/06/2015 06/02/2016 Inactive simvastatin 20 mg tablet RxNorm: 997805 1 Tablet(s) PO QHS 11/30/2015 11/19/2016 Inactive atenolol 25 mg tablet RxNorm: 260584 TAKE 1 TABLET BY MOUTH EVERY DAY 10/31/2015 04/27/2016 Inactive atenolol 25 mg tablet RxNorm: 147619 1 Tablet(s) PO daily 10/31/2015 10/30/2015 Inactive triamterene 37.5 mg-hydrochlorothiazide 25 mg tablet RxNorm: 529018 1 Tablet(s) PO daily 10/31/2015 10/30/2015 Inactive triamterene 37.5 mg-hydrochlorothiazide 25 mg tablet RxNorm: 494122 TAKE 1 TABLET BY MOUTH EVERY MORNING 10/31/2015 12/05/2015 Inactive triamterene 37.5 mg-hydrochlorothiazide 25 mg tablet RxNorm: 715053 1 Tablet(s) PO daily 10/31/2015 10/30/2015 Inactive atenolol 25 mg tablet RxNorm: 691704 1 Tablet(s) PO daily 03/07/2015 10/30/2015 Inactive Vitamin C 500 mg tablet RxNorm: 780290 1 Tablet(s) PO No Start Date Active vitamin E (dl, acetate) 400 unit capsule RxNorm: 370553 1 Capsule(s) PO daily No Start Date Active Multiple Vitamin oral RxNorm: 22456 oral No Start Date Active simvastatin 20 mg tablet RxNorm: 666534 1 Tablet(s) PO daily No Start Date 11/29/2015 Inactive Glucosamine Chondroitin Maximum Strength 500 mg-400 mg capsule RxNorm: 1 Capsule(s) PO daily No Start Date Active Vitamin D3 1,000 unit tablet RxNorm: 715833 Tablet(s) PO No Start Date Active Vitamin B-12 1,000 mcg tablet RxNorm: 844149 1 Tablet(s) PO daily No Start Date Active CoQ-10 oral RxNorm: 68846 oral No Start Date Active Calcium 600 + D(3) 600 mg (1,500 mg)-400 unit tablet RxNorm: 515233 Tablet(s) PO No Start Date Active Maxzide-25mg oral RxNorm: 35341 oral No Start Date 12/06/2015 Inactive atenolol 25 mg tablet RxNorm: 644257 1 Tablet(s) PO daily No Start Date 03/06/2015 Inactive Medication Administered Medication Codes Instructions Start Date Status Kenalog 40 mg/mL suspension for injection RxNorm: 3899163 Milliliter 03/07/2016 No longer Active Immunizations Vaccine [...] Item Item Code Result Date Comp Metabolic Eet279 NA 138 mEq/L 12/07/2015 Comp Metabolic Lfj445 K 4.4 mEq/L 12/07/2015 Comp Metabolic Dhs403 CL 103 mEq/L 12/07/2015 Comp Metabolic Oqj275 CO2 30.0 mEq/L 12/07/2015 Comp Metabolic Kun547 ANION GAP 9 12/07/2015 Comp Metabolic Yib118 GLUCOSE 84 mg/dL 12/07/2015 Comp Metabolic Grj436 Creat 1.0 mg/dL 12/07/2015 Comp Metabolic Spa122 eGFR 58 ml/min/1.73m2 12/07/2015 Comp Metabolic Sld557 BUN 16 mg/dL 12/07/2015 Comp Metabolic Tpq795 B/C Ratio 16.0 Ratio 12/07/2015 Comp Metabolic Pqp519 CALCIUM 9.0 mg/dL 12/07/2015 Comp Metabolic Vca986 ALK PHOS 59 U/L 12/07/2015 Comp Metabolic Znt524 AST(SGOT) 18 U/L 12/07/2015 Comp Metabolic Tkg473 ALT(SGPT) 14 U/L 12/07/2015 Comp Metabolic Jgi047 BILI T 0.5 mg/dL 12/07/2015 Comp Metabolic Bnn839 ALBUMIN 3.8 g/dL 12/07/2015 Comp Metabolic Gsb445 TPRO 6.2 g/dL 12/07/2015 Comp Metabolic Yen913 GLOB 2.4 g/dL 12/07/2015 Comp Metabolic Tdd066 A/G Ratio 1.5 Ratio 12/07/2015 Comp Metabolic Bbj138 Osmo 276 mOsmo 12/07/2015 Lipid Ord30 CHOL [...] 29.7 pg 12/07/2015 Cbc With Differential Ord2 [place]% 9.4 % 12/07/2015 Cbc With Differential Ord2 MCHC 32.3 pg 12/07/2015 Cbc With Differential Ord2 Eos% 2.0 % 12/07/2015 Cbc With Differential Ord2 Baso% 0.7 % 12/07/2015 Cbc With Differential Ord2 PLT 363 K/ul 12/07/2015 Cbc With Differential Ord2 Neut ABS# 3.35 K/ul 12/07/2015 Cbc With Differential Ord2 RDW 13.0 % 12/07/2015 Cbc With Differential Ord2 Lymph ABS# 1.41 K/ul 12/07/2015 Cbc With Differential Ord2 [place] ABS# 0.5 K/ul 12/07/2015 Cbc With Differential [...] Ord30 C/HDL 2.4 Ratio 03/07/2015 Comp Metabolic Ewi363 NA 136 mEq/L 03/07/2015 Comp Metabolic Dxb663 K 4.0 mEq/L 03/07/2015 Comp Metabolic Oll467 CL 100 mEq/L 03/07/2015 Comp Metabolic Gnn710 CO2 31.0 mEq/L 03/07/2015 Comp Metabolic Dod638 ANION GAP 9 03/07/2015 Comp Metabolic Qnb722 GLUCOSE 93 mg/dL 03/07/2015 Comp Metabolic Xmn414 Creat 1.1 mg/dL 03/07/2015 Comp Metabolic Nts658 eGFR 55 ml/min/1.73m2 03/07/2015 Comp Metabolic Avl553 BUN 16 mg/dL 03/07/2015 Comp Metabolic Wsf494 B/C Ratio 15.2 Ratio 03/07/2015 Comp Metabolic Azt822 CALCIUM 9.7 mg/dL 03/07/2015 Comp Metabolic Moz145 ALK PHOS 63 U/L 03/07/2015 Comp Metabolic Yqu090 AST(SGOT) 21 U/L 03/07/2015 Comp Metabolic Lpf798 ALT(SGPT) 16 U/L 03/07/2015 Comp Metabolic Pmo901 BILI T 0.7 mg/dL 03/07/2015 Comp Metabolic Otf467 ALBUMIN 4.3 g/dL 03/07/2015 Comp Metabolic Ges925 TPRO 7.0 g/dL 03/07/2015 Comp Metabolic Rwc646 GLOB 2.7 g/dL 03/07/2015 Comp Metabolic Nai539 A/G Ratio 1.6 Ratio 03/07/2015 Comp Metabolic Vwe851 Osmo 273 mOsmo 03/07/2015 Cbc With Differential [...] Codes Date TRIAMCINOLONE ACET INJ NOS CPT-4: K3269Asfklya 03/07/2016 ADMIN INFLUENZA VIRUS VAC Formatting Model/CDA Sections, Assigned to CPT- 4: E4628Ywezsup 03/07/2015 FLU VACC 4 ISIDORO 3 YRS PLUS IM SNOMED CT: 29562219 CPT-4: 17138Uqrizfp 03/07/2015 Vital Signs Date Vital 03/07/2016 Blood Pressure 1: 130/92 Code: 8480-6 Heart Rate 1: 72 bpm Height: Respiratory Rate: 16 bpm SpO2: 97% Temperature: 36.6 (C) / 97.9 (F) Weight: 12/06/2015 Blood Pressure 1: 122/70 Code: 8480-6 BMI: 24.9 Code: 77429-9 Heart Rate 1: 63 bpm Height: 5'8" SpO2: 97% Weight: 166 lbs 03/07/2015 Blood Pressure 1: 130/76 Code: 8480-6 BMI: 25.4 Code: 04437-5 Heart Rate 1: 58 bpm Height: 5'8" [...] data Encounters Encounter Performer Location Codes Date EST. PATIENT, LEVEL III Diagnosis: Otalgia, left ear[ICD10: H92.02] [facility] CPT- 4: 51088 03/07/2016 [id number]) 20068 EST. PATIENT, LEVEL III Diagnosis: Essential (primary) hypertension[ICD10: I10] Diagnosis: Mixed hyperlipidemia[ICD10: E78.2] [facility] CPT- 4: 33742 12/06/2015 ([id number]) OFFICE VISIT, NEW - LEVEL 4 Diagnosis: Other secondary hypertension[ICD10: I15.8] Diagnosis: Hyperlipidemia, unspecified[ICD10: E78.5] [facility] CPT-4: 08606 03/07/2015 Plan of Care Planned Activity Notes Codes Status Date Visit Plan: Left earache-suspect trigeminal neuralgia-kenalog injection today in the office-RX for oral prednisone taper provided and instructed on use-call friday with update on symptoms-patient verbalized understanding of plan. 03/07/2016 Appointment: Mary Michael WPtel: [facility] (10 min) Simple 03/07/2016 Patient Education: Patient Medication Summary Completed 03/07/2016 Patient Education: Patient Medication Summary Completed 12/08/2015 Care Plan: SCREENINGMAMMOGRAPHYDIGITAL [facility] : 23679-3 Pending 12/08/2015 Visit Plan: Hypertension - well [...] Summary Completed 12/06/2015 Appointment: Ethel Dudley WPtel: [facility]5 [facility] (15 min) Moderate 11/22/2015 Visit Plan: Hypertension [...] to medications. 03/07/2015 Appointment: Ethel Dudley WPtel: [facility] New Patient 03/07/2015 Patient Education: Patient Medication [...]
--- OUTSIDE RECORDS SUMMARY | 2018-11-13 08:22 | XMS REPORT | CCD ---
Author Author [facility] Organization [facility] Address [address] [place] [address] Phone Care Team Providers Care Buyer Tobacco Head Name Role Phone PP Unavailable CCM Unavailable Summary Purpose Interface Exchange Insurance Providers Payer name Policy type / Coverage type Covered republican ID Effective Begin Date Effective End Date WPS Medicare Part B Medicare Part B [id number] Unknown Unknown [facility] Medicare Part B [id number] Unknown Unknown Family history Father Diagnosis Age At Onset Hypertension Unknown Mother Diagnosis Age At Onset Colon cancer Unknown Social History Social History Element Codes Description Effective Dates Marital status Unknown Phong 03/07/2015 Number of children Unknown 2 03/07/2015 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 03/07/2015 Number of years using tobacco Unknown 1 - 5 03/07/[address]: 343208 Currently drinks alcohol 03/07/2015 Frequency of drinks SNOMED CT: 049978647 1- 4 drinks per week 03/07/2015 Allergies, Adverse Reactions, Alerts Substance Reaction Codes Entered Date Inactivated Date Status * NO KNOWN DRUG ALLERGIES Unknown 03/07/2015 No Inactive Date Active Past Medical History Illness Codes Condition Status Onset Date Resolved Date Essential (primary) hypertension ICD-9: 401.1 ICD-10: I10 Active 12/05/2015 Unknown Mixed hyperlipidemia ICD- 9: 272.2 ICD-10: E78.2 Active 12/05/2015 Unknown Laceration without foreign body, left lower leg, initial encounter ICD-9: 894.0 ICD-10: S81.812A Active 11/03/2017 Unknown Encounter for immunization ICD-9: V04.81 ICD-10: Z23 Active 2017 Unknown Otalgia, left ear ICD-9: 388.70 ICD-10: H92.02 Active 03/06/2016 Unknown Encounter for screening mammogram for malignant neoplasm of breast ICD-9: V76.12 ICD-10: Z12.31 Active 12/07/2015 Unknown Hyperlipidemia Unknown Active 03/07/2015 Unknown Hypertension Unknown Active 03/07/2015 Unknown Hyperlipidemia, unspecified ICD-9: 272.4 ICD-10: E78.5 Active 03/06/2015 Unknown Other secondary hypertension ICD-9: 401.9 ICD-10: I15.8 Active 03/06/2015 Unknown VACCIN FOR INFLUENZA ICD- 9: V04.81 Active 03/06/2015 Unknown Problems Condition Codes Effective Dates Condition Status Essential (primary) hypertension ICD-9: 401.1 ICD-10: I10 12/05/2015 Active Mixed hyperlipidemia ICD- 9: 272.2 ICD-10: E78.2 12/05/2015 Active Laceration without foreign body, left lower leg, initial encounter ICD-9: 894.0 ICD-10: S81.812A 11/03/2017 Active Encounter for immunization ICD-9: V04.81 ICD-10: Z23 2017 Active Otalgia, left ear ICD-9: 388.70 ICD-10: H92.02 03/06/2016 Active Encounter for screening mammogram for malignant neoplasm of breast ICD-9: V76.12 ICD-10: Z12.31 12/07/2015 Active Hyperlipidemia Unknown 03/07/2015 Active Hypertension Unknown 03/07/2015 Active Hyperlipidemia, unspecified ICD-9: 272.4 ICD-10: E78.5 03/06/2015 Active Other secondary hypertension ICD-9: 401.9 ICD-10: I15.8 03/06/2015 Active VACCIN FOR INFLUENZA ICD- 9: V04.81 03/06/2015 Active Medications Medication Codes Instructions Start Date Stop Date Status Fill Instructions simvastatin 20 mg tablet RxNorm: 207473 1 Tablet(s) PO daily 10/28/2017 01/20/2019 Active triamterene 37.5 mg-hydrochlorothiazide 25 mg tablet RxNorm: 635424 1/2 TABLET(S) PO DAILY 02/05/2017 11/02/2017 Inactive atenolol 25 mg tablet RxNorm: 647541 1 TABLET(S) PO DAILY 12/30/2016 06/27/2017 Inactive simvastatin 20 mg tablet RxNorm: 969712 1 TABLET(S) PO QHS 11/20/2016 08/16/2017 Inactive triamterene 37.5 mg-hydrochlorothiazide 25 mg tablet RxNorm: 779303 1/2 TABLET(S) PO DAILY 08/09/2016 02/04/2017 Inactive atenolol 25 mg tablet RxNorm: 996879 1 TABLET(S) PO DAILY 07/01/2016 12/27/2016 Inactive Kenalog 40 mg/mL suspension for injection RxNorm: 8132701 Milliliter(s) Inj 03/07/2016 03/07/2016 Inactive atenolol 25 mg tablet RxNorm: 927609 1 TABLET(S) PO DAILY 01/05/2016 06/30/2016 Inactive triamterene 37.5 mg-hydrochlorothiazide 25 mg tablet RxNorm: 683766 1/2 Tablet(s) PO daily 12/06/2015 06/02/2016 Inactive simvastatin 20 mg tablet RxNorm: 282430 1 Tablet(s) PO QHS 11/30/2015 11/19/2016 Inactive atenolol 25 mg tablet RxNorm: 569489 TAKE 1 TABLET BY MOUTH EVERY DAY 10/31/2015 04/27/2016 Inactive atenolol 25 mg tablet RxNorm: 785920 1 Tablet(s) PO daily 10/31/2015 10/30/2015 Inactive triamterene 37.5 mg-hydrochlorothiazide 25 mg tablet RxNorm: 909000 1 Tablet(s) PO daily 10/31/2015 10/30/2015 Inactive triamterene 37.5 mg-hydrochlorothiazide 25 mg tablet RxNorm: 449233 TAKE 1 TABLET BY MOUTH EVERY MORNING 10/31/2015 12/05/2015 Inactive triamterene 37.5 mg-hydrochlorothiazide 25 mg tablet RxNorm: 718997 1 Tablet(s) PO daily 10/31/2015 10/30/2015 Inactive atenolol 25 mg tablet RxNorm: 932019 1 Tablet(s) PO daily 03/07/2015 10/30/2015 Inactive Vitamin C 500 mg tablet RxNorm: 326541 1 Tablet(s) PO No Start Date Active vitamin E (dl, acetate) 400 unit capsule RxNorm: 214546 1 Capsule(s) PO daily No Start Date Active Multiple Vitamin oral RxNorm: 01295 oral No Start Date Active amlodipine 5 mg tablet RxNorm: 326118 1 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 No Start Date Active Glucosamine Chondroitin Maximum Strength 500 mg-400 mg capsule RxNorm: 1 Capsule(s) PO daily No Start Date Active Vitamin D3 1,000 unit tablet RxNorm: 917215 Tablet(s) PO No Start Date Active Vitamin B-12 1,000 mcg tablet RxNorm: 362467 1 Tablet(s) PO daily No Start Date Active CoQ-10 oral RxNorm: 23169 oral No Start Date Active Calcium 600 + D(3) 600 mg (1,500 mg)-400 unit tablet RxNorm: 151047 Tablet(s) PO No Start Date Active Maxzide-25mg oral RxNorm: 59146 oral No Start Date 12/06/2015 Inactive simvastatin 20 mg tablet RxNorm: 389157 1 Tablet(s) PO daily No Start Date 10/27/2017 Inactive atenolol 25 mg tablet RxNorm: 026790 1 Tablet(s) PO daily No Start Date 03/06/2015 Inactive Medication Administered Medication Codes Instructions Start Date Status Kenalog 40 mg/mL suspension for injection RxNorm: 7942910 Milliliter 03/07/2016 No longer Active Immunizations Vaccine Codes Date Status Influenza CVX: 141 2017 completed Influenza CVX: 141 03/07/2015 completed Assessments Condition Codes Effective Dates Essential (primary) hypertension ICD-10: I10 ICD-9: 401.1 02/05/2018 Mixed hyperlipidemia ICD-10: E78.2 ICD-9: 272.2 02/05/2018 Laceration without foreign body, left lower leg, initial encounter ICD-10: S81.812A ICD-9: 894.0 11/03/2017 Encounter for immunization ICD-10: Z23 ICD-9: V04.81 2017 Otalgia, left ear ICD-10: H92.02 ICD-9: 388.70 03/07/2016 Encounter for screening mammogram for malignant neoplasm of breast ICD-10: Z12.31 ICD-9: V76.12 12/08/2015 Other secondary hypertension ICD-10: I15.8 ICD-9: 401.9 03/07/2015 Hyperlipidemia, unspecified ICD-10: E78.5 ICD-9: 272.4 03/07/2015 VACCIN FOR INFLUENZA ICD-9: V04.81 03/07/2015 Reason For Visit Reason For Visit Effective Dates Notes hypertension 02/05/2018 sores 11/03/2017 vaccination against influenza 2017 hypertension 01/14/2017 earache 03/07/2016 hypertension 12/06/2015 hypertension 03/07/2015 Results Observation Observation Code Item Item Code Result Date Tsh Ord6 TSH (3rd IS) 1.21 uIU/mL 01/30/2018 Comp Metabolic Sbq131 NA 139 mEq/L 01/30/2018 Comp Metabolic Usd294 K 4.1 mEq/L 01/30/2018 Comp Metabolic Ulc804 CL 103 mEq/L 01/30/2018 Comp Metabolic Ror451 CO2 29.0 mEq/L 01/30/2018 Comp Metabolic Tdx171 ANION GAP 11 01/30/2018 Comp Metabolic Cud862 GLUCOSE 96 mg/dL 01/30/2018 Comp Metabolic Eqh610 Creat 0.8 mg/dL 01/30/2018 Comp Metabolic Cbf802 eGFR 74 ml/min/1.73m2 01/30/2018 Comp Metabolic Xdk271 BUN 16 mg/dL 01/30/2018 Comp Metabolic Ved509 B/C Ratio 20.0 Ratio 01/30/2018 Comp Metabolic Rjd816 CALCIUM 9.4 mg/dL 01/30/2018 Comp Metabolic Tdf816 ALK PHOS 63 U/L 01/30/2018 Comp Metabolic Fev401 AST(SGOT) 19 U/L 01/30/2018 Comp Metabolic Eub724 ALT(SGPT) 15 U/L 01/30/2018 Comp Metabolic Arz394 BILI T 0.6 mg/dL 01/30/2018 Comp Metabolic Wxr421 ALBUMIN 4.2 g/dL 01/30/2018 Comp Metabolic Ywj250 TPRO 6.6 g/dL 01/30/2018 Comp Metabolic Pdw624 GLOB 2.4 g/dL 01/30/2018 Comp Metabolic Sgi876 A/G Ratio 1.7 Ratio 01/30/2018 Comp Metabolic Dio420 Osmo 279 mOsmo 01/30/2018 Cbc With Differential Ord2 WBC 6.43 K/ul 01/30/2018 Cbc With Differential Ord2 RBC 4.17 M/ul 01/30/2018 Cbc With Differential Ord2 HGB 12.3 g/dl 01/30/2018 Cbc With Differential Ord2 Neut% 63.0 % 01/30/2018 Cbc With Differential Ord2 HCT 38.3 % 01/30/2018 Cbc With Differential Ord2 MCV 91.8 fl 01/30/2018 Cbc With Differential Ord2 Lymph% 25.8 % 01/30/2018 Cbc With Differential Ord2 MCH 29.5 pg 01/30/2018 Cbc With Differential Ord2 Frio% 8.7 % 01/30/2018 Cbc With Differential Ord2 MCHC 32.1 pg 01/30/2018 Cbc With Differential Ord2 Eos% 1.7 % 01/30/2018 Cbc With Differential Ord2 PLT 365 K/ul 01/30/2018 Cbc With Differential Ord2 Baso% 0.8 % 01/30/2018 Cbc With Differential Ord2 RDW 13.0 % 01/30/2018 Cbc With Differential Ord2 Neut ABS# 4.05 K/ul 01/30/2018 Cbc With Differential Ord2 Lymph ABS# 1.66 K/ul 01/30/2018 Cbc With Differential Ord2 Frio ABS# 0.6 K/ul 01/30/2018 Cbc With Differential Ord2 Eos ABS# 0.1 K/ul 01/30/2018 Cbc With Differential Ord2 Baso ABS# 0.1 K/ul 01/30/2018 Lipid Ord30 CHOL 186 mg/dL 01/30/2018 Lipid Ord30 HDL 79.0 mg/dl 01/30/2018 Lipid Ord30 TRIG 76 mg/dL 01/30/2018 Lipid Ord30 LDL 92 mg/dL 01/30/2018 Lipid Ord30 C/HDL 2.4 Ratio 01/30/2018 Tsh Ord6 hTSH II 0.91 uIU/mL 01/15/2017 Comp Metabolic Mqn762 NA 140 mEq/L 01/15/2017 Comp Metabolic Bcy374 K 4.5 mEq/L 01/15/2017 Comp Metabolic Pls471 CL 102 mEq/L 01/15/2017 Comp Metabolic Ztm892 CO2 27.0 mEq/L 01/15/2017 Comp Metabolic Akw740 ANION GAP 16 01/15/2017 Comp Metabolic Ipq602 GLUCOSE 85 mg/dL 01/15/2017 Comp Metabolic Lie138 Creat 0.9 mg/dL 01/15/2017 Comp Metabolic Pcb258 eGFR 65 ml/min/1.73m2 01/15/2017 Comp Metabolic Tha251 BUN 15 mg/dL 01/15/2017 Comp Metabolic Pqw927 B/C Ratio 16.7 Ratio 01/15/2017 Comp Metabolic Dfk333 CALCIUM 9.1 mg/dL 01/15/2017 Comp Metabolic Vls136 ALK PHOS 64 U/L 01/15/2017 Comp Metabolic Gim728 AST(SGOT) 19 U/L 01/15/2017 Comp Metabolic Pbm150 ALT(SGPT) 15 U/L 01/15/2017 Comp Metabolic Qem114 BILI T 0.5 mg/dL 01/15/2017 Comp Metabolic Iij028 ALBUMIN 3.7 g/dL 01/15/2017 Comp Metabolic Uik513 TPRO 6.0 g/dL 01/15/2017 Comp Metabolic Qqy714 GLOB 2.3 g/dL 01/15/2017 Comp Metabolic Aot956 A/G Ratio 1.6 Ratio 01/15/2017 Comp Metabolic Knd011 Osmo 279 mOsmo 01/15/2017 Cbc With Differential Ord2 WBC 4.87 K/ul 01/15/2017 Cbc With Differential Ord2 RBC 4.11 M/ul 01/15/2017 Cbc With Differential Ord2 HGB 12.3 g/dl 01/15/2017 Cbc With Differential Ord2 Neut% 58.8 % 01/15/2017 Cbc With Differential Ord2 HCT 38.0 % 01/15/2017 Cbc With Differential Ord2 MCV 92.5 fl 01/15/2017 Cbc With Differential Ord2 Lymph% 29.6 % 01/15/2017 Cbc With Differential Ord2 MCH 29.9 pg 01/15/2017 Cbc With Differential Ord2 Frio% 9.4 % 01/15/2017 Cbc With Differential Ord2 MCHC 32.4 pg 01/15/2017 Cbc With Differential Ord2 Eos% 1.4 % 01/15/2017 Cbc With Differential Ord2 PLT 377 K/ul 01/15/2017 Cbc With Differential Ord2 Baso% 0.8 % 01/15/2017 Cbc With Differential Ord2 RDW 12.9 % 01/15/2017 Cbc With Differential Ord2 Neut ABS# 2.86 K/ul 01/15/2017 Cbc With Differential Ord2 Lymph ABS# 1.44 K/ul 01/15/2017 Cbc With Differential Ord2 Frio ABS# 0.5 K/ul 01/15/2017 Cbc With Differential Ord2 Eos ABS# 0.1 K/ul 01/15/2017 Cbc With Differential Ord2 Baso ABS# 0.0 K/ul 01/15/2017 Lipid Ord30 CHOL 160 mg/dL 01/15/2017 Lipid Ord30 HDL 79.0 mg/dl 01/15/2017 Lipid Ord30 TRIG 71 mg/dL 01/15/2017 Lipid Ord30 LDL 67 mg/dL 01/15/2017 Lipid Ord30 C/HDL 2.0 Ratio 01/15/2017 Comp Metabolic Juu610 NA 138 mEq/L 12/07/2015 Comp Metabolic Das497 K 4.4 mEq/L 12/07/2015 Comp Metabolic Gkf510 CL 103 mEq/L 12/07/2015 Comp Metabolic Mna812 CO2 30.0 mEq/L 12/07/2015 Comp Metabolic Fid340 ANION GAP 9 12/07/2015 Comp Metabolic Dfk504 GLUCOSE 84 mg/dL 12/07/2015 Comp Metabolic Bpr342 Creat 1.0 mg/dL 12/07/2015 Comp Metabolic Zya296 eGFR 58 ml/min/1.73m2 12/07/2015 Comp Metabolic Gkv887 BUN 16 mg/dL 12/07/2015 Comp Metabolic Qdp366 B/C Ratio 16.0 Ratio 12/07/2015 Comp Metabolic Atd156 CALCIUM 9.0 mg/dL 12/07/2015 Comp Metabolic Ofx518 ALK PHOS 59 U/L 12/07/2015 Comp Metabolic Mwl679 AST(SGOT) 18 U/L 12/07/2015 Comp Metabolic Ctj479 ALT(SGPT) 14 U/L 12/07/2015 Comp Metabolic Uzp257 BILI T 0.5 mg/dL 12/07/2015 Comp Metabolic Fkx180 ALBUMIN 3.8 g/dL 12/07/2015 Comp Metabolic Evh410 TPRO 6.2 g/dL 12/07/2015 Comp Metabolic Txu948 GLOB 2.4 g/dL 12/07/2015 Comp Metabolic Aro673 A/G Ratio 1.5 Ratio 12/07/2015 Comp Metabolic Ief966 Osmo 276 mOsmo 12/07/2015 Lipid Ord30 CHOL [...] 29.7 pg 12/07/2015 Cbc With Differential Ord2 Frio% 9.4 % 12/07/2015 Cbc With Differential Ord2 [...] 1.41 K/ul 12/07/2015 Cbc With Differential Ord2 Frio ABS# 0.5 K/ul 12/07/2015 Cbc With Differential [...] Ord30 C/HDL 2.4 Ratio 03/07/2015 Comp Metabolic Vzj781 NA 136 mEq/L 03/07/2015 Comp Metabolic Rnm140 K 4.0 mEq/L 03/07/2015 Comp Metabolic Etk373 CL 100 mEq/L 03/07/2015 Comp Metabolic Ucv796 CO2 31.0 mEq/L 03/07/2015 Comp Metabolic Epc116 ANION GAP 9 03/07/2015 Comp Metabolic Sgy248 GLUCOSE 93 mg/dL 03/07/2015 Comp Metabolic Pjk426 Creat 1.1 mg/dL 03/07/2015 Comp Metabolic Bin519 eGFR 55 ml/min/1.73m2 03/07/2015 Comp Metabolic Fkc833 BUN 16 mg/dL 03/07/2015 Comp Metabolic Abf928 B/C Ratio 15.2 Ratio 03/07/2015 Comp Metabolic Xsh752 CALCIUM 9.7 mg/dL 03/07/2015 Comp Metabolic Zjy155 ALK PHOS 63 U/L 03/07/2015 Comp Metabolic Ahi552 AST(SGOT) 21 U/L 03/07/2015 Comp Metabolic Qkx252 ALT(SGPT) 16 U/L 03/07/2015 Comp Metabolic Ipr896 BILI T 0.7 mg/dL 03/07/2015 Comp Metabolic Cbk263 ALBUMIN 4.3 g/dL 03/07/2015 Comp Metabolic Nrh620 TPRO 7.0 g/dL 03/07/2015 Comp Metabolic Uiz814 GLOB 2.7 g/dL 03/07/2015 Comp Metabolic Ncq519 A/G Ratio 1.6 Ratio 03/07/2015 Comp Metabolic Thk176 Osmo 273 mOsmo 03/07/2015 Cbc With Differential [...] Result Effective Dates Constitutional No recent illness 02/05/2018 Constitutional No chills 02/05/2018 Constitutional No fatigue 02/05/2018 Constitutional No fever 02/05/2018 Constitutional No insomnia 02/05/2018 Constitutional No malaise 02/05/2018 Eyes No blindness 02/05/2018 Eyes No vision change 02/05/2018 Ears/Nose/Throat/Neck No dental pain 02/05/2018 Ears/Nose/Throat/Neck No dizziness 02/05/2018 Ears/Nose/Throat/Neck No dysphagia 02/05/2018 Ears/Nose/Throat/Neck No headache 02/05/2018 Ears/Nose/Throat/Neck No hearing loss 02/05/2018 Ears/Nose/Throat/Neck No nasal allergies 02/05/2018 Ears/Nose/Throat/Neck No sore throat 02/05/2018 Ears/Nose/Throat/Neck No postnasal drip 02/05/2018 Ears/Nose/Throat/Neck No sinus congestion 02/05/2018 Cardiovascular No chest pain/pressure 02/05/2018 Cardiovascular No dyspnea 02/05/2018 Cardiovascular No edema 02/05/2018 Cardiovascular No exercise intolerance 02/05/2018 Cardiovascular fatigue 02/05/2018 Cardiovascular No near-syncope/dizziness 02/05/2018 Respiratory No chest tightness 02/05/2018 Respiratory No cough 02/05/2018 Respiratory No dyspnea 02/05/2018 Respiratory No pedal edema 02/05/2018 Gastrointestinal No abdominal pain 02/05/2018 Gastrointestinal No constipation 02/05/2018 Gastrointestinal No diarrhea 02/05/2018 Gastrointestinal No gastroesophageal reflux 02/05/2018 Gastrointestinal No nausea 02/05/2018 Gastrointestinal No vomiting 02/05/2018 Genitourinary/Nephrology No dysuria 02/05/2018 Genitourinary/Nephrology No nocturia 02/05/2018 Genitourinary/Nephrology No urinary incontinence 02/05/2018 Musculoskeletal No stiffness 02/05/2018 Musculoskeletal No swelling 02/05/2018 Musculoskeletal No muscle weakness 02/05/2018 Musculoskeletal No myalgias 02/05/2018 Dermatologic mole change 02/05/2018 Dermatologic No rash 02/05/2018 Dermatologic No sores 02/05/2018 Dermatologic No scar 02/05/2018 Neurologic No dizziness 02/05/2018 Neurologic No headache 02/05/2018 Neurologic No neck pain 02/05/2018 Neurologic No syncope 02/05/2018 Psychiatric No anxiety 02/05/2018 Psychiatric No depression 02/05/2018 Constitutional No recent illness 11/03/2017 Constitutional No anorexia 11/03/2017 Constitutional No night sweats 11/03/2017 Constitutional No chills 11/03/2017 Constitutional No diaphoresis 11/03/2017 Constitutional No fatigue 11/03/2017 Constitutional No fever 11/03/2017 Constitutional No insomnia 11/03/2017 Constitutional No malaise 11/03/2017 Constitutional No weight loss 11/03/2017 Constitutional No weight gain 11/03/2017 Dermatologic laceration 11/03/2017 Constitutional No recent illness 01/14/2017 Constitutional No chills 01/14/2017 Constitutional No fatigue 01/14/2017 Constitutional No fever 01/14/2017 Constitutional No insomnia 01/14/2017 Constitutional No malaise 01/14/2017 Eyes No blindness 01/14/2017 Eyes No vision change 01/14/2017 Ears/Nose/Throat/Neck No dental pain 01/14/2017 Ears/Nose/Throat/Neck No dizziness 01/14/2017 Ears/Nose/Throat/Neck No dysphagia 01/14/2017 Ears/Nose/Throat/Neck No headache 01/14/2017 Ears/Nose/Throat/Neck No hearing loss 01/14/2017 Ears/Nose/Throat/Neck No nasal allergies 01/14/2017 Ears/Nose/Throat/Neck No sore throat 01/14/2017 Ears/Nose/Throat/Neck No postnasal drip 01/14/2017 Ears/Nose/Throat/Neck No sinus congestion 01/14/2017 Cardiovascular No chest pain/pressure 01/14/2017 Cardiovascular No dyspnea 01/14/2017 Cardiovascular No edema 01/14/2017 Cardiovascular No exercise intolerance 01/14/2017 Cardiovascular No fatigue 01/14/2017 Cardiovascular No near-syncope/dizziness 01/14/2017 Respiratory No chest tightness 01/14/2017 Respiratory No cough 01/14/2017 Respiratory No dyspnea 01/14/2017 Respiratory No pedal edema 01/14/2017 Gastrointestinal No abdominal pain 01/14/2017 Gastrointestinal No constipation 01/14/2017 Gastrointestinal No diarrhea 01/14/2017 Gastrointestinal No gastroesophageal reflux 01/14/2017 Gastrointestinal No nausea 01/14/2017 Gastrointestinal No vomiting 01/14/2017 Genitourinary/Nephrology No dysuria 01/14/2017 Genitourinary/Nephrology No nocturia 01/14/2017 Genitourinary/Nephrology No urinary incontinence 01/14/2017 Musculoskeletal No stiffness 01/14/2017 Musculoskeletal No swelling 01/14/2017 Musculoskeletal No muscle weakness 01/14/2017 Musculoskeletal No myalgias 01/14/2017 Dermatologic mole change 01/14/2017 Dermatologic No rash 01/14/2017 Dermatologic No sores 01/14/2017 Dermatologic No scar 01/14/2017 Neurologic No dizziness 01/14/2017 Neurologic No headache 01/14/2017 Neurologic No neck pain 01/14/2017 Neurologic No syncope 01/14/2017 Psychiatric No anxiety 01/14/2017 Psychiatric No depression 01/14/2017 Constitutional No recent illness 03/07/2016 Constitutional No [...] Result Effective Dates Notes Full Exam - General 1994 Constitutional general appearance Development: well developed 02/05/2018 None Full Exam - General 1994 Constitutional general appearance Development: appears stated age 0802/05/2018 None Full Exam - General 1994 Constitutional general appearance Hygiene/Attention to Grooming: good hygiene 02/05/2018 None Full Exam - General 1994 Eyes conjunctiva/eyelids Overall: conjunctiva clear 02/05/2018 None Full Exam - General 1994 Eyes conjunctiva/eyelids Overall: cornea clear 02/05/2018 None Full Exam - General 1994 Eyes conjunctiva/eyelids Overall: eyelids normal 02/05/2018 None Full Exam - General 1994 Eyes pupils and irises Overall: pupils equal, round, reactive to light and accomodation 02/05/2018 None Full Exam - General 1994 Ears/Nose/Throat otoscopic exam Overall: external auditory canals clear 02/05/2018 None Full Exam - General 1994 Ears/Nose/Throat otoscopic exam Overall: tympanic membranes clear 02/05/2018 None Full Exam - General 1994 Ears/Nose/Throat lips/teeth/gingiva Overall: benign lips 02/05/2018 None Full Exam - General 1994 Ears/Nose/Throat lips/teeth/gingiva Overall: normal dentition 02/05/2018 None Full Exam - General 1994 Ears/Nose/Throat oral cavity/pharynx/larynx Overall: oral mucosa clear 02/05/2018 None Full Exam - General 1994 Ears/Nose/Throat oral cavity/pharynx/larynx Overall: oropharyngeal mucosa clear 02/05/2018 None Full Exam - General 1994 Ears/Nose/Throat oral cavity/pharynx/larynx Overall: hypopharynx benign 02/05/2018 None Full Exam - General 1994 Ears/Nose/Throat oral cavity/pharynx/larynx Overall: no masses 02/05/2018 None Full Exam - General 1994 Respiratory auscultation Overall: breath sounds clear bilaterally 02/05/2018 None Full Exam - General 1994 Respiratory respiratory effort/rhythm Overall: no retractions 02/05/2018 None Full Exam - General 1994 Respiratory respiratory effort/rhythm Overall: normal rate 02/05/2018 None Full Exam - General 1994 Cardiovascular extremities Overall: no clubbing 02/05/2018 None Full Exam - General 1994 Cardiovascular auscultation of heart Overall: regular rate 02/05/2018 None Full Exam - General 1994 Cardiovascular auscultation of heart Overall: normal heart sounds 02/05/2018 None Full Exam - General 1994 Abdomen abdominal exam Overall: no tenderness 02/05/2018 None Full Exam - General 1994 Abdomen abdominal exam Overall: normal bowel sounds 02/05/2018 None Full Exam - General 1994 Lymphatic neck nodes Overall: anterior cervical chain benign 02/05/2018 None Full Exam - General 1994 Lymphatic neck nodes Overall: posterior cervical chain benign 02/05/2018 None Full Exam - General 1994 Musculoskeletal spine, ribs and pelvis Overall: spine benign 02/05/2018 None Full Exam - General 1994 Musculoskeletal spine, ribs and pelvis Overall: sacroiliac joint benign 02/05/2018 None Full Exam - General 1994 Musculoskeletal spine, ribs and pelvis Overall: good posture 02/05/2018 None Full Exam - General 1994 Musculoskeletal head and neck Overall: head atraumatic 02/05/2018 None Full Exam - General 1994 Musculoskeletal head and neck Overall: cervical spine benign 02/05/2018 None Full Exam - General 1994 Integument inspection of skin Overall: few scattered moles, no gross abnormalities 02/05/2018 None Full Exam - General 1994 Neurologic deep tendon reflexes Overall: deep tendon reflexes intact 02/05/2018 None Full Exam - General 1994 Neurologic cranial nerves Overall: crainial nerves 2 - 12 grossly intact 02/05/2018 None Full Exam - General 1994 Psychiatric orientation/consciousness Overall: oriented to person, place and time 02/05/2018 None Full Exam - General 1994 Psychiatric mood and affect Overall: normal mood and affect 02/05/2018 None Full Exam - Dermatology Constitutional general appearance Overall: well nourished 11/03/2017 None Full Exam - Dermatology Constitutional general appearance Overall: well developed 11/03/2017 None Full Exam - Dermatology Constitutional general appearance Overall: in no acute distress 11/03/2017 None Full Exam - Dermatology Constitutional general appearance Overall: of normal body habitus 11/03/2017 None Full Exam - Dermatology Constitutional general appearance Overall: well groomed 11/03/2017 None Full Exam - Dermatology Psychiatric orientation Overall: oriented to person, place and time 11/03/2017 None Full Exam - Dermatology Integument insp & palp - left lower extremity Lesion: skin tear 11/03/2017 None Full Exam - Dermatology Integument insp & palp - left lower extremity Distribution: localized 11/03/2017 None Full Exam - Dermatology Integument insp & palp - left lower extremity Location: on the steve 11/03/2017 None Full Exam - Dermatology Integument insp & palp - left lower extremity Color: pink 11/03/2017 None Full Exam - Dermatology Integument insp & palp - left lower extremity Shape: irregular 11/03/2017 None Full Exam - Dermatology Integument insp & palp - left lower extremity Length: 2cm 11/03/2017 x 2.5cm wide Full Exam - General 1994 Constitutional general appearance Development: well developed 01/14/2017 None Full Exam - General 1994 Constitutional general appearance Development: appears stated age 0801/14/2017 None Full Exam - General 1994 Constitutional general appearance Hygiene/Attention to Grooming: good hygiene 01/14/2017 None Full Exam - General 1994 Eyes conjunctiva/eyelids Overall: conjunctiva clear 01/14/2017 None Full Exam - General 1994 Eyes conjunctiva/eyelids Overall: cornea clear 01/14/2017 None Full Exam - General 1994 Eyes conjunctiva/eyelids Overall: eyelids normal 01/14/2017 None Full Exam - General 1994 Eyes pupils and irises Overall: pupils equal, round, reactive to light and accomodation 01/14/2017 None Full Exam - General 1994 Ears/Nose/Throat otoscopic exam Overall: external auditory canals clear 01/14/2017 None Full Exam - General 1994 Ears/Nose/Throat otoscopic exam Overall: tympanic membranes clear 01/14/2017 None Full Exam - General 1994 Ears/Nose/Throat lips/teeth/gingiva Overall: benign lips 01/14/2017 None Full Exam - General 1994 Ears/Nose/Throat lips/teeth/gingiva Overall: normal dentition 01/14/2017 None Full Exam - General 1994 Ears/Nose/Throat oral cavity/pharynx/larynx Overall: oral mucosa clear 01/14/2017 None Full Exam - General 1994 Ears/Nose/Throat oral cavity/pharynx/larynx Overall: oropharyngeal mucosa clear 01/14/2017 None Full Exam - General 1994 Ears/Nose/Throat oral cavity/pharynx/larynx Overall: hypopharynx benign 01/14/2017 None Full Exam - General 1994 Ears/Nose/Throat oral cavity/pharynx/larynx Overall: no masses 01/14/2017 None Full Exam - General 1994 Respiratory auscultation Overall: breath sounds clear bilaterally 01/14/2017 None Full Exam - General 1994 Respiratory respiratory effort/rhythm Overall: no retractions 01/14/2017 None Full Exam - General 1994 Respiratory respiratory effort/rhythm Overall: normal rate 01/14/2017 None Full Exam - General 1994 Cardiovascular extremities Overall: no clubbing 01/14/2017 None Full Exam - General 1994 Cardiovascular auscultation of heart Overall: regular rate 01/14/2017 None Full Exam - General 1994 Cardiovascular auscultation of heart Overall: normal heart sounds 01/14/2017 None Full Exam - General 1994 Abdomen abdominal exam Overall: no tenderness 01/14/2017 None Full Exam - General 1994 Abdomen abdominal exam Overall: normal bowel sounds 01/14/2017 None Full Exam - General 1994 Lymphatic neck nodes Overall: anterior cervical chain benign 01/14/2017 None Full Exam - General 1994 Lymphatic neck nodes Overall: posterior cervical chain benign 01/14/2017 None Full Exam - General 1994 Musculoskeletal spine, ribs and pelvis Overall: spine benign 01/14/2017 None Full Exam - General 1994 Musculoskeletal spine, ribs and pelvis Overall: sacroiliac joint benign 01/14/2017 None Full Exam - General 1994 Musculoskeletal spine, ribs and pelvis Overall: good posture 01/14/2017 None Full Exam - General 1994 Musculoskeletal head and neck Overall: head atraumatic 01/14/2017 None Full Exam - General 1994 Musculoskeletal head and neck Overall: cervical spine benign 01/14/2017 None Full Exam - General 1994 Integument inspection of skin Overall: few scattered moles, no gross abnormalities 01/14/2017 None Full Exam - General 1994 Neurologic deep tendon reflexes Overall: deep tendon reflexes intact 01/14/2017 None Full Exam - General 1994 Neurologic cranial nerves Overall: crainial nerves 2 - 12 grossly intact 01/14/2017 None Full Exam - General 1994 Psychiatric orientation/consciousness Overall: oriented to person, place and time 01/14/2017 None Full Exam - General 1994 Psychiatric mood and affect Overall: normal mood and affect 01/14/2017 None Full Exam - ENT Constitutional general appearance [...] affect 03/07/2015 None Procedures Procedure Codes Date IIV4 VACC NO PRSV 3 YRS+ IM CPT-4: 20572 2017 IIV4 VACC NO PRSV 3 YRS+ IM CPT-4: 95172 2017 FLU VAC NO PRSV 4 ISIDORO 3 YRS+ CPT-4: 59039 2017 ADMIN INFLUENZA VIRUS VAC CPT-4: G0008 2017 TRIAMCINOLONE ACET INJ NOS CPT-4: J3301 03/07/2016 ADMIN INFLUENZA VIRUS VAC Formatting Model/CDA Sections, Assigned to CPT- 4: [id number] 03/07/2015 FLU VACC 4 ISIDORO 3 YRS PLUS IM SNOMED CT: 37804849 CPT-4: 74482 03/07/2015 Vital Signs Date Vital 02/05/2018 Blood Pressure 1: 122/74 Code: 8480-6 BMI: 22.9 Code: 85163-1 Heart Rate 1: 63 bpm Height: 5'8" SpO2: 98% Weight: 153 lbs 11/03/2017 Blood Pressure 1: 140/72 Code: 8480-6 BMI: 23.1 Code: 17311-4 Heart Rate 1: 64 bpm Height: 5'8" SpO2: 97% Weight: 154 lbs 01/14/2017 Blood Pressure 1: 142/72 Code: 8480-6 BMI: 22.0 Code: 27152-7 Heart Rate 1: 60 bpm Height: 5'8" SpO2: 97% Weight: 147 lbs 03/07/2016 Blood Pressure 1: 130/92 Code: 8480-6 Heart Rate 1: 72 bpm Height: Respiratory Rate: 16 bpm SpO2: 97% Temperature: 36.6 (C) / 97.9 (F) Weight: 12/06/2015 Blood Pressure 1: 122/70 Code: 8480-6 BMI: 24.9 Code: 08665-6 Heart Rate 1: 63 bpm Height: 5'8" SpO2: 97% Weight: 166 lbs 03/07/2015 Blood Pressure 1: 130/76 Code: 8480-6 BMI: 25.4 Code: 22460-9 Heart Rate 1: 58 bpm Height: 5'8" SpO2: 99% Weight: 169 lbs 5 oz Functional Status No Functional Status data History of Present Illness Symptom Name Status Result Effective Date Notes hypertension Quality stable 02/05/2018 None hypertension Onset and Resolution ongoing 02/05/2018 None hypertension Onset of Symptom during adulthood 02/05/2018 None hypertension Blood Pressure Values not checking blood pressure at home 02/05/2018 None hypertension Alleviating Factors medication 02/05/2018 None hypertension Pertinent Findings Denies anxiety 02/05/2018 None hypertension Pertinent Findings Denies decreased energy 02/05/2018 None hypertension Pertinent Findings Denies dizziness 02/05/2018 None hypertension Pertinent Findings Denies dyspnea 02/05/2018 None hypertension Pertinent Findings Denies edema 02/05/2018 None hyperlipidemia Onset and Resolution gradual in onset 02/05/2018 None hyperlipidemia Onset and Resolution ongoing 02/05/2018 None hyperlipidemia Onset of Symptom during adulthood 02/05/2018 None hyperlipidemia Alleviating Factors medication 02/05/2018 None hyperlipidemia Exacerbating Factors diet 02/05/2018 None sores Location-Major on the lower body 11/03/2017 None sores Location-Major on the legs 11/03/2017 None sores Location-Extremities on the left leg 11/03/2017 None sores Quality acute 11/03/2017 None sores Quality worsening 11/03/2017 None sores Color pink 11/03/2017 None sores Severity worsening 11/03/2017 None sores Prior Treatments previously treated 11/03/2017 None sores Triggers outside 11/03/2017 None sores Pertinent Findings Denies itching 11/03/2017 None sores Pertinent Findings Denies muscle pain 11/03/2017 None sores Pertinent Findings Denies pain 11/03/2017 None sores Pertinent Findings tenderness 11/03/2017 None hypertension Quality stable 01/14/2017 None hypertension Onset and Resolution ongoing 01/14/2017 None hypertension Onset of Symptom during adulthood 01/14/2017 None hypertension Blood Pressure Values not checking blood pressure at home 01/14/2017 None hypertension Alleviating Factors medication 01/14/2017 None hypertension Pertinent Findings Denies dizziness 01/14/2017 None hypertension Pertinent Findings Denies dyspnea 01/14/2017 None hypertension Pertinent Findings Denies edema 01/14/2017 None hyperlipidemia Onset and Resolution gradual in onset 01/14/2017 None hyperlipidemia Onset and Resolution ongoing 01/14/2017 None hyperlipidemia Onset of Symptom during adulthood 01/14/2017 None hyperlipidemia Alleviating Factors medication 01/14/2017 None hyperlipidemia Exacerbating Factors diet 01/14/2017 None hypertension Pertinent Findings Denies decreased energy 01/14/2017 None hypertension Pertinent Findings Denies anxiety 01/14/2017 None earache Severity moderate 03/07/2016 None earache Frequency [...] data Encounters Encounter Performer Location Codes Date ([id number]) [id number] EST. PATIENT, LEVEL IV Diagnosis: Essential (primary) hypertension[ICD10: I10] Diagnosis: Mixed hyperlipidemia[ICD10: E78.2] [facility] CPT- 4: 00009 02/05/2018 [id number] EST. PATIENT, LEVEL II Diagnosis: Laceration without foreign body, left lower leg, initial encounter[ICD10: S81.812A] [facility] CPT-4: 28207 11/03/2017 [id number]) [id number] EST. PATIENT, LEVEL IV Diagnosis: Essential (primary) hypertension[ICD10: I10] Diagnosis: Mixed hyperlipidemia[ICD10: E78.2] Ethel Dudley MD, [facility] CPT- 4: 95786 01/14/2017 ([id number]) [id number] EST. PATIENT, LEVEL III Diagnosis: Otalgia, left ear[ICD10: H92.02] Mary Dudley MD, [facility] CPT- 4: 13252 03/07/2016 ([id number]) [id number] EST. PATIENT, LEVEL III Diagnosis: Essential (primary) hypertension[ICD10: I10] Diagnosis: Mixed hyperlipidemia[ICD10: E78.2] Ethel Dudley MD, [facility] CPT- 4: 83594 12/06/2015 ([id number]) OFFICE VISIT, NEW - LEVEL 4 Diagnosis: Other secondary hypertension[ICD10: I15.8] Diagnosis: Hyperlipidemia, unspecified[ICD10: E78.5] Ethel Dudley MD, [facility] CPT-4: 89687 03/07/2015 Plan of Care Planned Activity Notes Codes Status Date Visit Plan: Hypertension - well controlled - [...] to assure normal liver response to medications. 02/05/2018 Patient Education: Patient Medication Summary Completed 02/05/2018 Patient Education: Patient Medication Summary Completed 01/30/2018 Appointment: Nurse Visit 11/06/2017 Visit Plan: Wound Instructions - Pt was instructed to keep the wound clean, wash with antibacterial soap, use medihoney as directedt, call if redness, pustular drainage, or any other acute concerns. 11/03/2017 [facility]ment[phone] [phone] (15 min) Moderate 11/03/2017 Patient Education: Patient Medication Summary Completed 11/03/2017 Appointment: Injection 2017 Patient Education: Patient Medication Summary Completed 2017 Visit Plan: Hypertension - well controlled - [...] to assure normal liver response to medications. 01/14/2017 Visit Plan: Hypertension - well controlled - [...] to assure normal liver response to medications. 01/14/2017 Appointment: [facility] [phone] [facility] [place] [place] (15 min) Moderate 01/14/2017 Patient Education: Patient Medication Summary Completed 01/14/2017 Care Plan: Comp Metabolic Pending 01/14/2017 Care Plan: Cbc With Differential Pending 01/14/2017 Care Plan: Tsh Pending 01/14/2017 Care Plan: Lipid Pending 01/14/2017 Visit Plan: Left earache-suspect trigeminal neuralgia-kenalog injection today in the office-RX for oral prednisone taper provided and instructed on use-call yessy with update on symptoms-patient verbalized unde rstanding of plan. 03/07/2016 Appointment: Mary Michael WPtel: [phone] [facility] (10 min) Simple 03/07/2016 Patient Education: Patient Medication Summary Completed 03/07/2016 Patient Education: Patient Medication Summary Completed 12/08/2015 Care Plan[facility] [address]5 Pending 12/08/2015 Visit Plan: Hypertension - well [...] Summary Completed 12/06/2015 Appointment: Ethel Dudley WPtel: [phone] [facility] (15 min) Moderate 11/22/2015 Visit Plan: [...] to medications. 03/07/2015 Appointment: [facility] Dud[phone] [facility] [place] New Patient 03/07/2015 Patient Education: Patient Medication [...] to assure normal liver response to medications. medihoney to wound left leg stop in for wound check culture of wound . Wound Instructions - Pt was instructed to keep the wound clean, wash with antibacterial soap, use medihoney as directedt, call if redness, pustular drainage, or any other acute concerns. . Hypertension - well controlled - continue [...]
--- OUTSIDE RECORDS SUMMARY | 2018-11-13 08:23 | XMS REPORT | CCD ---
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 Name Role Phone PP Unavailable CCM Unavailable Summary Purpose Interface Exchange Insurance Providers Payer name Policy type / Coverage type Covered libertarian ID Effective Begin Date Effective End Date WPS Medicare Part B Medicare Part B [id number] Unknown Unknown [facility] Medicare Part B [id number] Unknown Unknown Family history Father Diagnosis Age At Onset Hypertension Unknown Mother Diagnosis Age At Onset Colon cancer Unknown Social History Social History Element Codes Description Effective Dates Marital status Unknown Phong 03/07/2015 Number of children Unknown 2 03/07/2015 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 03/07/2015 Number of years using tobacco Unknown 1 - 5 03/07/[address]: 888067 Currently drinks alcohol 03/07/2015 Frequency of drinks SNOMED CT: 373178008 1- 4 drinks per week 03/07/2015 Allergies, [...] Fill Instructions simvastatin 20 mg tablet RxNorm: 223658 1 Tablet(s) PO daily 10/28/2017 01/20/2019 Active triamterene 37.5 mg-hydrochlorothiazide 25 mg tablet RxNorm: 678202 1/2 TABLET(S) PO DAILY 02/05/2017 11/02/2017 Inactive atenolol 25 mg tablet RxNorm: 299547 1 TABLET(S) PO DAILY 12/30/2016 06/27/2017 Inactive simvastatin 20 mg tablet RxNorm: 294804 1 TABLET(S) PO QHS 11/20/2016 08/16/2017 Inactive triamterene 37.5 mg-hydrochlorothiazide 25 mg tablet RxNorm: 773446 1/2 TABLET(S) PO DAILY 08/09/2016 02/04/2017 Inactive atenolol 25 mg tablet RxNorm: 758984 1 TABLET(S) PO DAILY 07/01/2016 12/27/2016 Inactive Kenalog 40 mg/mL suspension for injection RxNorm: 6065543 Milliliter(s) Inj 03/07/2016 03/07/2016 Inactive atenolol 25 mg tablet RxNorm: 266867 1 TABLET(S) PO DAILY 01/05/2016 06/30/2016 Inactive triamterene 37.5 mg-hydrochlorothiazide 25 mg tablet RxNorm: 289199 1/2 Tablet(s) PO daily 12/06/2015 06/02/2016 Inactive simvastatin 20 mg tablet RxNorm: 892065 1 Tablet(s) PO QHS 11/30/2015 11/19/2016 Inactive atenolol 25 mg tablet RxNorm: 159390 TAKE 1 TABLET BY MOUTH EVERY DAY 10/31/2015 04/27/2016 Inactive atenolol 25 mg tablet RxNorm: 320990 1 Tablet(s) PO daily 10/31/2015 10/30/2015 Inactive triamterene 37.5 mg-hydrochlorothiazide 25 mg tablet RxNorm: 285263 1 Tablet(s) PO daily 10/31/2015 10/30/2015 Inactive triamterene 37.5 mg-hydrochlorothiazide 25 mg tablet RxNorm: 447555 TAKE 1 TABLET BY MOUTH EVERY MORNING 10/31/2015 12/05/2015 Inactive triamterene 37.5 mg-hydrochlorothiazide 25 mg tablet RxNorm: 839260 1 Tablet(s) PO daily 10/31/2015 10/30/2015 Inactive atenolol 25 mg tablet RxNorm: 074999 1 Tablet(s) PO daily 03/07/2015 10/30/2015 Inactive Vitamin C 500 mg tablet RxNorm: 559778 1 Tablet(s) PO No Start Date Active vitamin E (dl, acetate) 400 unit capsule RxNorm: 210953 1 Capsule(s) PO daily No Start Date Active Multiple Vitamin oral RxNorm: 67296 oral No Start Date Active amlodipine 5 mg tablet RxNorm: 362041 1 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 No Start Date Active Glucosamine Chondroitin Maximum Strength 500 mg-400 mg capsule RxNorm: 1 Capsule(s) PO daily No Start Date Active Vitamin D3 1,000 unit tablet RxNorm: 963718 Tablet(s) PO No Start Date Active Vitamin B-12 1,000 mcg tablet RxNorm: 426815 1 Tablet(s) PO daily No Start Date Active CoQ-10 oral RxNorm: 25444 oral No Start Date Active Calcium 600 + D(3) 600 mg (1,500 mg)-400 unit tablet RxNorm: 083078 Tablet(s) PO No Start Date Active Maxzide-25mg oral RxNorm: 66716 oral No Start Date 12/06/2015 Inactive simvastatin 20 mg tablet RxNorm: 295102 1 Tablet(s) PO daily No Start Date 10/27/2017 Inactive atenolol 25 mg tablet RxNorm: 929268 1 Tablet(s) PO daily No Start Date 03/06/2015 Inactive Medication Administered Medication Codes Instructions Start Date Status Kenalog 40 mg/mL suspension for injection RxNorm: 3775082 Milliliter 03/07/2016 No longer Active Immunizations Vaccine Codes Date Status Influenza CVX: 141 2017 completed Influenza CVX: 141 03/07/2015 completed Assessments Condition Codes Effective Dates Mixed hyperlipidemia ICD-10: E78.2 ICD-9: 272.2 01/30/2018 Essential (primary) hypertension ICD-10: I10 ICD-9: 401.1 01/30/2018 Laceration without foreign body, left lower leg, [...] Visit Reason For Visit Effective Dates Notes sores 11/03/2017 vaccination against influenza 2017 hypertension 01/14/2017 earache 03/07/2016 hypertension 12/06/2015 hypertension 03/07/2015 Results Observation Observation Code Item Item Code Result Date Tsh Ord6 TSH (3rd IS) 1.21 uIU/mL 01/30/2018 Comp Metabolic Gba355 NA 139 mEq/L 01/30/2018 Comp Metabolic Ihl293 K 4.1 mEq/L 01/30/2018 Comp Metabolic Ynz583 CL 103 mEq/L 01/30/2018 Comp Metabolic Gew524 CO2 29.0 mEq/L 01/30/2018 Comp Metabolic Pha534 ANION GAP 11 01/30/2018 Comp Metabolic Nmd938 GLUCOSE 96 mg/dL 01/30/2018 Comp Metabolic Xau698 Creat 0.8 mg/dL 01/30/2018 Comp Metabolic Aui447 eGFR 74 ml/min/1.73m2 01/30/2018 Comp Metabolic Ads266 BUN 16 mg/dL 01/30/2018 Comp Metabolic Cjs323 B/C Ratio 20.0 Ratio 01/30/2018 Comp Metabolic Hli998 CALCIUM 9.4 mg/dL 01/30/2018 Comp Metabolic Rxr067 ALK PHOS 63 U/L 01/30/2018 Comp Metabolic Fjn415 AST(SGOT) 19 U/L 01/30/2018 Comp Metabolic Eje250 ALT(SGPT) 15 U/L 01/30/2018 Comp Metabolic Lhe213 BILI T 0.6 mg/dL 01/30/2018 Comp Metabolic Kpl518 ALBUMIN 4.2 g/dL 01/30/2018 Comp Metabolic Cms429 TPRO 6.6 g/dL 01/30/2018 Comp Metabolic Lzm677 GLOB 2.4 g/dL 01/30/2018 Comp Metabolic Wnu298 A/G Ratio 1.7 Ratio 01/30/2018 Comp Metabolic Top676 Osmo 279 mOsmo 01/30/2018 Cbc With Differential Ord2 WBC 6.43 K/ul 01/30/2018 Cbc With Differential Ord2 RBC 4.17 M/ul 01/30/2018 Cbc With Differential Ord2 HGB 12.3 g/dl 01/30/2018 Cbc With Differential Ord2 Neut% 63.0 % 01/30/2018 Cbc With Differential Ord2 HCT 38.3 % 01/30/2018 Cbc With Differential Ord2 Lymph% 25.8 % 01/30/2018 Cbc With Differential Ord2 MCV 91.8 fl 01/30/2018 Cbc With Differential Ord2 MCH 29.5 pg 01/30/2018 Cbc With Differential Ord2 [place]% 8.7 % 01/30/2018 Cbc With Differential Ord2 MCHC 32.1 pg 01/30/2018 Cbc With Differential Ord2 Eos% 1.7 % 01/30/2018 Cbc With Differential Ord2 PLT 365 K/ul 01/30/2018 Cbc With Differential Ord2 Baso% 0.8 % 01/30/2018 Cbc With Differential Ord2 Neut ABS# 4.05 K/ul 01/30/2018 Cbc With Differential Ord2 RDW 13.0 % 01/30/2018 Cbc With Differential Ord2 Lymph ABS# 1.66 K/ul 01/30/2018 Cbc With Differential Ord2 [place] ABS# 0.6 K/ul 01/30/2018 Cbc With Differential Ord2 Eos ABS# 0.1 K/ul 01/30/2018 Cbc With Differential Ord2 Baso ABS# 0.1 K/ul 01/30/2018 Lipid Ord30 CHOL 186 mg/dL 01/30/2018 Lipid Ord30 HDL 79.0 mg/dl 01/30/2018 Lipid Ord30 TRIG 76 mg/dL 01/30/2018 Lipid Ord30 LDL 92 mg/dL 01/30/2018 Lipid Ord30 C/HDL 2.4 Ratio 01/30/2018 Tsh Ord6 hTSH II 0.91 uIU/mL 01/15/2017 Comp Metabolic Zur150 NA 140 mEq/L 01/15/2017 Comp Metabolic Ipo419 K 4.5 mEq/L 01/15/2017 Comp Metabolic Zwm583 CL 102 mEq/L 01/15/2017 Comp Metabolic Zdt781 CO2 27.0 mEq/L 01/15/2017 Comp Metabolic Rgy115 ANION GAP 16 01/15/2017 Comp Metabolic Vtm660 GLUCOSE 85 mg/dL 01/15/2017 Comp Metabolic Oye191 Creat 0.9 mg/dL 01/15/2017 Comp Metabolic Xkk309 eGFR 65 ml/min/1.73m2 01/15/2017 Comp Metabolic Boi094 BUN 15 mg/dL 01/15/2017 Comp Metabolic Cqk582 B/C Ratio 16.7 Ratio 01/15/2017 Comp Metabolic Vhk733 CALCIUM 9.1 mg/dL 01/15/2017 Comp Metabolic Cfi526 ALK PHOS 64 U/L 01/15/2017 Comp Metabolic Csh848 AST(SGOT) 19 U/L 01/15/2017 Comp Metabolic Kwd927 ALT(SGPT) 15 U/L 01/15/2017 Comp Metabolic Vib084 BILI T 0.5 mg/dL 01/15/2017 Comp Metabolic Xfu295 ALBUMIN 3.7 g/dL 01/15/2017 Comp Metabolic Ddb798 TPRO 6.0 g/dL 01/15/2017 Comp Metabolic Zhf310 GLOB 2.3 g/dL 01/15/2017 Comp Metabolic Pxa175 A/G Ratio 1.6 Ratio 01/15/2017 Comp Metabolic Pqs564 Osmo 279 mOsmo 01/15/2017 Cbc With Differential [...] 29.6 % 01/15/2017 Cbc With Differential Ord2 [place]% 9.4 % 01/15/2017 Cbc With Differential Ord2 MCH 29.9 pg 01/15/2017 Cbc With Differential Ord2 MCHC 32.4 pg 01/15/2017 Cbc With Differential Ord2 Eos% 1.4 % 01/15/2017 Cbc With Differential Ord2 PLT 377 K/ul 01/15/2017 Cbc With Differential Ord2 Baso% 0.8 % 01/15/2017 Cbc With Differential Ord2 RDW 12.9 % 01/15/2017 Cbc With Differential Ord2 Neut ABS# 2.86 K/ul 01/15/2017 Cbc With Differential Ord2 Lymph ABS# 1.44 K/ul 01/15/2017 Cbc With Differential Ord2 [place] ABS# 0.5 K/ul 01/15/2017 Cbc With Differential Ord2 Eos ABS# 0.1 K/ul 01/15/2017 Cbc With Differential Ord2 Baso ABS# 0.0 K/ul 01/15/2017 Lipid Ord30 CHOL 160 mg/dL 01/15/2017 Lipid Ord30 HDL 79.0 mg/dl 01/15/2017 Lipid Ord30 TRIG 71 mg/dL 01/15/2017 Lipid Ord30 LDL 67 mg/dL 01/15/2017 Lipid Ord30 C/HDL 2.0 Ratio 01/15/2017 Comp Metabolic Eua727 NA 138 mEq/L 12/07/2015 Comp Metabolic Pkx170 K 4.4 mEq/L 12/07/2015 Comp Metabolic Zif976 CL 103 mEq/L 12/07/2015 Comp Metabolic Wkd932 CO2 30.0 mEq/L 12/07/2015 Comp Metabolic Fye809 ANION GAP 9 12/07/2015 Comp Metabolic Dnc613 GLUCOSE 84 mg/dL 12/07/2015 Comp Metabolic Sds410 Creat 1.0 mg/dL 12/07/2015 Comp Metabolic Lhg272 eGFR 58 ml/min/1.73m2 12/07/2015 Comp Metabolic Nqd912 BUN 16 mg/dL 12/07/2015 Comp Metabolic Hck803 B/C Ratio 16.0 Ratio 12/07/2015 Comp Metabolic Oja540 CALCIUM 9.0 mg/dL 12/07/2015 Comp Metabolic Mdy478 ALK PHOS 59 U/L 12/07/2015 Comp Metabolic Idv769 AST(SGOT) 18 U/L 12/07/2015 Comp Metabolic Iqg593 ALT(SGPT) 14 U/L 12/07/2015 Comp Metabolic Whe101 BILI T 0.5 mg/dL 12/07/2015 Comp Metabolic Uax508 ALBUMIN 3.8 g/dL 12/07/2015 Comp Metabolic Ruo052 TPRO 6.2 g/dL 12/07/2015 Comp Metabolic Xhl806 GLOB 2.4 g/dL 12/07/2015 Comp Metabolic Avy643 A/G Ratio 1.5 Ratio 12/07/2015 Comp Metabolic Tvr511 Osmo 276 mOsmo 12/07/2015 Lipid Ord30 CHOL [...] 29.7 pg 12/07/2015 Cbc With Differential Ord2 [place]% 9.4 % 12/07/2015 Cbc With Differential Ord2 [...] 1.41 K/ul 12/07/2015 Cbc With Differential Ord2 [place] ABS# 0.5 K/ul 12/07/2015 Cbc With Differential [...] Ord30 C/HDL 2.4 Ratio 03/07/2015 Comp Metabolic Qat892 NA 136 mEq/L 03/07/2015 Comp Metabolic Tdn758 K 4.0 mEq/L 03/07/2015 Comp Metabolic Zln672 CL 100 mEq/L 03/07/2015 Comp Metabolic Nlx134 CO2 31.0 mEq/L 03/07/2015 Comp Metabolic Trl896 ANION GAP 9 03/07/2015 Comp Metabolic Zjz593 GLUCOSE 93 mg/dL 03/07/2015 Comp Metabolic Vjh814 Creat 1.1 mg/dL 03/07/2015 Comp Metabolic Rdp897 eGFR 55 ml/min/1.73m2 03/07/2015 Comp Metabolic Bym293 BUN 16 mg/dL 03/07/2015 Comp Metabolic Bid927 B/C Ratio 15.2 Ratio 03/07/2015 Comp Metabolic Yrx666 CALCIUM 9.7 mg/dL 03/07/2015 Comp Metabolic Cqe243 ALK PHOS 63 U/L 03/07/2015 Comp Metabolic Qrc526 AST(SGOT) 21 U/L 03/07/2015 Comp Metabolic Dgq431 ALT(SGPT) 16 U/L 03/07/2015 Comp Metabolic Ibz612 BILI T 0.7 mg/dL 03/07/2015 Comp Metabolic Lqi004 ALBUMIN 4.3 g/dL 03/07/2015 Comp Metabolic Vuc380 TPRO 7.0 g/dL 03/07/2015 Comp Metabolic Irn492 GLOB 2.7 g/dL 03/07/2015 Comp Metabolic Weq009 A/G Ratio 1.6 Ratio 03/07/2015 Comp Metabolic Vgp226 Osmo 273 mOsmo 03/07/2015 Cbc With Differential [...] Result Effective Dates Constitutional No recent illness 11/03/2017 Constitutional No [...] Result Effective Dates Notes Full Exam - Dermatology Constitutional general appearance [...] VACC NO PRSV 3 YRS+ IM CPT-4: 74191 2017 IIV4 VACC NO PRSV 3 YRS+ IM CPT-4: 37555 2017 FLU VAC NO PRSV 4 ISIDORO 3 YRS+ CPT-4: 75460 2017 ADMIN INFLUENZA VIRUS VAC CPT-4: G0008 2017 TRIAMCINOLONE ACET INJ NOS CPT-4: J3301 03/07/2016 ADMIN INFLUENZA VIRUS VAC Formatting Model/CDA Sections, Assigned to CPT- 4: T3351Tyjoesf 03/07/2015 FLU VACC 4 ISIDORO 3 YRS PLUS IM SNOMED CT: 36259697 CPT-4: 97815 03/07/2015 Vital Signs Date Vital 11/03/2017 Blood Pressure 1: 140/72 Code: 8480-6 BMI: 23.1 Code: 68904-9 Heart Rate 1: 64 bpm Height: 5'8" SpO2: 97% Weight: 154 lbs 01/14/2017 Blood Pressure 1: 142/72 Code: 8480-6 BMI: 22.0 Code: 10069-5 Heart Rate 1: 60 bpm Height: 5'8" SpO2: 97% Weight: 147 lbs 03/07/2016 Blood Pressure 1: 130/92 Code: 8480-6 Heart Rate 1: 72 bpm Height: Respiratory Rate: 16 bpm SpO2: 97% Temperature: 36.6 (C) / 97.9 (F) Weight: 12/06/2015 Blood Pressure 1: 122/70 Code: 8480-6 BMI: 24.9 Code: 38469-9 Heart Rate 1: 63 bpm Height: 5'8" SpO2: 97% Weight: 166 lbs 03/07/2015 Blood Pressure 1: 130/76 Code: 8480-6 BMI: 25.4 Code: 00275-9 Heart Rate 1: 58 bpm Height: 5'8" SpO2: 99% Weight: 169 lbs 5 oz Functional Status No Functional Status data History of Present Illness Symptom Name Status Result Effective Date Notes sores Location-Major on the lower body 11/03/2017 [...] Performer Location Codes Date EST. PATIENT, LEVEL II Diagnosis: Laceration without foreign body, left lower leg, initial encounter[ICD10: S81.812A] Mary Dudley MD, [facility] CPT-4: 70676 11/03/2017 ([id number]) [id number] EST. PATIENT, LEVEL IV Diagnosis: Essential (primary) hypertension[ICD10: I10] Diagnosis: Mixed hyperlipidemia[ICD10: E78.2] [facility] CPT- 4: 66319 01/14/2017 ([id number]) [id number] EST. PATIENT, LEVEL III Diagnosis: Otalgia, left ear[ICD10: H92.02] Mary Dudley MD, [facility] CPT- 4: 71198 03/07/2016 ([id number]) 22898 EST. PATIENT, LEVEL III Diagnosis: Essential (primary) hypertension[ICD10: I10] Diagnosis: Mixed hyperlipidemia[ICD10: E78.2] [facility] CPT- 4: 51205 12/06/2015 ([id number]) OFFICE VISIT, NEW - LEVEL 4 Diagnosis: Other secondary hypertension[ICD10: I15.8] Diagnosis: Hyperlipidemia, unspecified[ICD10: E78.5] [facility] CPT-4: 38408 03/07/2015 Plan of Care Planned Activity Notes Codes Status Date Patient Education: Patient Medication Summary Completed 01/30/2018 Appointment: Nurse Visit 11/06/2017 Visit Plan: Wound Instructions - Pt was instructed to keep the wound clean, wash with antibacterial soap, use medihoney as directedt, call if redness, pustular drainage, or any other acute concerns. 11/03/2017 Appointment: [phone] (15 min) Moderate 11/03/2017 Patient Education: Patient [...] to medications. 01/14/2017 [facility] [phone] [phone] (15 min) Moderate 01/14/2017 Patient Education: Patient Medication Summary Completed 01/14/2017 Care Plan: Comp Metabolic Pending 01/14/2017 Care Plan: Cbc With Differential Pending 01/14/2017 Care Plan: Tsh Pending 01/14/2017 Care Plan: Lipid Pending 01/14/2017 Visit Plan: Left earache-suspect trigeminal neuralgia-kenalog injection today in the office-RX for oral prednisone taper provided and instructed on use-call friday with update on symptoms-patient verbalized unde rstanding of plan. 03/07/2016 [facility]ment: [facility] [phone] [phone] (10 min) Simple 03/07/2016 Patient Education: Patient Medication Summary Completed 03/07/2016 Patient Education: Patient Medication Summary Completed 12/08/2015 Care Plan: SCREENINGMAMMOGRAPHYDIGITAL LOINC : 84652-2 Pending 12/08/2015 Visit Plan: Hypertension - well [...] Summary Completed 12/06/2015 Appointment: Ethel Dudley WPtel: [phone] [facility] (15 min) Moderate 11/22/2015 Visit Plan: [...] to medications. 03/07/2015 Appointment: Ethel Dudley WPtel: [phone] [facility] New Patient 03/07/2015 Patient Education: Patient Medication [...]
--- OUTSIDE RECORDS SUMMARY | 2018-11-13 08:24 | XMS REPORT | CCD ---
Author Author [facility]thel Dudlye Organization [facility] Address [address] [place] [address] Phone Care Team Providers Care Tube Buffer Name Role Phone PP Unavailable CCM Unavailable Summary Purpose Interface Exchange Insurance Providers Payer name Policy type / Coverage type Covered alliance party ID Effective Begin Date Effective End Date WPS Medicare Part B Medicare Part B [id number] Unknown Unknown [facility] Medicare Part B [id number] Unknown Unknown Family history Father Diagnosis Age At Onset Hypertension Unknown Mother Diagnosis Age At Onset Colon cancer Unknown Social History Social History Element Codes Description Effective Dates Marital status Unknown Phong 03/07/2015 Number of children Unknown 2 03/07/2015 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 03/07/2015 Number of years using tobacco Unknown 1 - 5 03/07/[address]: 644609 Currently drinks alcohol 03/07/2015 Frequency of drinks SNOMED CT: 079195013 1- 4 drinks per week 03/07/2015 Allergies, [...] Fill Instructions simvastatin 20 mg tablet RxNorm: 298349 1 Tablet(s) PO daily 10/28/2017 01/20/2019 Active triamterene 37.5 mg-hydrochlorothiazide 25 mg tablet RxNorm: 760583 1/2 TABLET(S) PO DAILY 02/05/2017 11/02/2017 Inactive atenolol 25 mg tablet RxNorm: 313154 1 TABLET(S) PO DAILY 12/30/2016 06/27/2017 Inactive simvastatin 20 mg tablet RxNorm: 026790 1 TABLET(S) PO QHS 11/20/2016 08/16/2017 Inactive triamterene 37.5 mg-hydrochlorothiazide 25 mg tablet RxNorm: 746052 1/2 TABLET(S) PO DAILY 08/09/2016 02/04/2017 Inactive atenolol 25 mg tablet RxNorm: 895231 1 TABLET(S) PO DAILY 07/01/2016 12/27/2016 Inactive Kenalog 40 mg/mL suspension for injection RxNorm: 8895178 Milliliter(s) Inj 03/07/2016 03/07/2016 Inactive atenolol 25 mg tablet RxNorm: 151630 1 TABLET(S) PO DAILY 01/05/2016 06/30/2016 Inactive triamterene 37.5 mg-hydrochlorothiazide 25 mg tablet RxNorm: 992052 1/2 Tablet(s) PO daily 12/06/2015 06/02/2016 Inactive simvastatin 20 mg tablet RxNorm: 511254 1 Tablet(s) PO QHS 11/30/2015 11/19/2016 Inactive atenolol 25 mg tablet RxNorm: 622798 TAKE 1 TABLET BY MOUTH EVERY DAY 10/31/2015 04/27/2016 Inactive atenolol 25 mg tablet RxNorm: 505527 1 Tablet(s) PO daily 10/31/2015 10/30/2015 Inactive triamterene 37.5 mg-hydrochlorothiazide 25 mg tablet RxNorm: 122513 1 Tablet(s) PO daily 10/31/2015 10/30/2015 Inactive triamterene 37.5 mg-hydrochlorothiazide 25 mg tablet RxNorm: 323166 TAKE 1 TABLET BY MOUTH EVERY MORNING 10/31/2015 12/05/2015 Inactive triamterene 37.5 mg-hydrochlorothiazide 25 mg tablet RxNorm: 082633 1 Tablet(s) PO daily 10/31/2015 10/30/2015 Inactive atenolol 25 mg tablet RxNorm: 956268 1 Tablet(s) PO daily 03/07/2015 10/30/2015 Inactive Vitamin C 500 mg tablet RxNorm: 178352 1 Tablet(s) PO No Start Date Active vitamin E (dl, acetate) 400 unit capsule RxNorm: 394844 1 Capsule(s) PO daily No Start Date Active Multiple Vitamin oral RxNorm: 05874 oral No Start Date Active amlodipine 5 mg tablet RxNorm: 983047 1 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) 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 No Start Date Active Glucosamine Chondroitin Maximum Strength 500 mg-400 mg capsule RxNorm: 1 Capsule(s) PO daily No Start Date Active Vitamin D3 1,000 unit tablet RxNorm: 337596 Tablet(s) PO No Start Date Active Vitamin B-12 1,000 mcg tablet RxNorm: 842846 1 Tablet(s) PO daily No Start Date Active CoQ-10 oral RxNorm: 39719 oral No Start Date Active Calcium 600 + D(3) 600 mg (1,500 mg)-400 unit tablet RxNorm: 367333 Tablet(s) PO No Start Date Active Maxzide-25mg oral RxNorm: 28636 oral No Start Date 12/06/2015 Inactive simvastatin 20 mg tablet RxNorm: 240196 1 Tablet(s) PO daily No Start Date 10/27/2017 Inactive atenolol 25 mg tablet RxNorm: 320858 1 Tablet(s) PO daily No Start Date 03/06/2015 Inactive Medication Administered Medication Codes Instructions Start Date Status Kenalog 40 mg/mL suspension for injection RxNorm: 9549363 Milliliter 03/07/2016 No longer Active Immunizations Vaccine [...] Item Item Code Result Date Tsh Ord6 hTSH II 0.91 uIU/mL 01/15/2017 Comp Metabolic Gjl713 NA 140 mEq/L 01/15/2017 Comp Metabolic Una910 K 4.5 mEq/L 01/15/2017 Comp Metabolic Kfk818 CL 102 mEq/L 01/15/2017 Comp Metabolic Bah502 CO2 27.0 mEq/L 01/15/2017 Comp Metabolic Azj182 ANION GAP 16 01/15/2017 Comp Metabolic Bfx855 GLUCOSE 85 mg/dL 01/15/2017 Comp Metabolic Nne934 Creat 0.9 mg/dL 01/15/2017 Comp Metabolic Qpi204 eGFR 65 ml/min/1.73m2 01/15/2017 Comp Metabolic Fqv169 BUN 15 mg/dL 01/15/2017 Comp Metabolic Pon923 B/C Ratio 16.7 Ratio 01/15/2017 Comp Metabolic Nyp158 CALCIUM 9.1 mg/dL 01/15/2017 Comp Metabolic Mxc729 ALK PHOS 64 U/L 01/15/2017 Comp Metabolic Fzx862 AST(SGOT) 19 U/L 01/15/2017 Comp Metabolic Vkh836 ALT(SGPT) 15 U/L 01/15/2017 Comp Metabolic Rfd749 BILI T 0.5 mg/dL 01/15/2017 Comp Metabolic Mzg178 ALBUMIN 3.7 g/dL 01/15/2017 Comp Metabolic Vbo030 TPRO 6.0 g/dL 01/15/2017 Comp Metabolic Zmi200 GLOB 2.3 g/dL 01/15/2017 Comp Metabolic Phn387 A/G Ratio 1.6 Ratio 01/15/2017 Comp Metabolic Wgx064 Osmo 279 mOsmo 01/15/2017 Cbc With Differential Ord2 WBC 4.87 K/ul 01/15/2017 Cbc With Differential Ord2 RBC 4.11 M/ul 01/15/2017 Cbc With Differential Ord2 HGB 12.3 g/dl 01/15/2017 Cbc With Differential Ord2 HCT 38.0 % 01/15/2017 Cbc With Differential Ord2 Neut% 58.8 % 01/15/2017 Cbc With Differential Ord2 Lymph% 29.6 % 01/15/2017 Cbc With Differential Ord2 MCV 92.5 fl 01/15/2017 Cbc With Differential Ord2 MCH 29.9 pg 01/15/2017 Cbc With Differential Ord2 Meagher% 9.4 % 01/15/2017 Cbc With Differential Ord2 MCHC 32.4 pg 01/15/2017 Cbc With Differential Ord2 Eos% 1.4 % 01/15/2017 Cbc With Differential Ord2 Baso% 0.8 % 01/15/2017 Cbc With Differential Ord2 PLT 377 K/ul 01/15/2017 Cbc With Differential Ord2 Neut ABS# 2.86 K/ul 01/15/2017 Cbc With Differential Ord2 RDW 12.9 % 01/15/2017 Cbc With Differential Ord2 Lymph ABS# 1.44 K/ul 01/15/2017 Cbc With Differential Ord2 Meagher ABS# 0.5 K/ul 01/15/2017 Cbc With Differential Ord2 Eos ABS# 0.1 K/ul 01/15/2017 Cbc With Differential Ord2 Baso ABS# 0.0 K/ul 01/15/2017 Lipid Ord30 CHOL 160 mg/dL 01/15/2017 Lipid Ord30 HDL 79.0 mg/dl 01/15/2017 Lipid Ord30 TRIG 71 mg/dL 01/15/2017 Lipid Ord30 LDL 67 mg/dL 01/15/2017 Lipid Ord30 C/HDL 2.0 Ratio 01/15/2017 Comp Metabolic Hhl426 NA 138 mEq/L 12/07/2015 Comp Metabolic Amp945 K 4.4 mEq/L 12/07/2015 Comp Metabolic Eqh508 CL 103 mEq/L 12/07/2015 Comp Metabolic Cxv402 CO2 30.0 mEq/L 12/07/2015 Comp Metabolic Und968 ANION GAP 9 12/07/2015 Comp Metabolic Dzf239 GLUCOSE 84 mg/dL 12/07/2015 Comp Metabolic Ivt055 Creat 1.0 mg/dL 12/07/2015 Comp Metabolic Uyx668 eGFR 58 ml/min/1.73m2 12/07/2015 Comp Metabolic Tmb316 BUN 16 mg/dL 12/07/2015 Comp Metabolic Fuc098 B/C Ratio 16.0 Ratio 12/07/2015 Comp Metabolic Swm107 CALCIUM 9.0 mg/dL 12/07/2015 Comp Metabolic Qdx195 ALK PHOS 59 U/L 12/07/2015 Comp Metabolic Sqx475 AST(SGOT) 18 U/L 12/07/2015 Comp Metabolic Rud255 ALT(SGPT) 14 U/L 12/07/2015 Comp Metabolic Agm441 BILI T 0.5 mg/dL 12/07/2015 Comp Metabolic Nld528 ALBUMIN 3.8 g/dL 12/07/2015 Comp Metabolic Dsr393 TPRO 6.2 g/dL 12/07/2015 Comp Metabolic Dua950 GLOB 2.4 g/dL 12/07/2015 Comp Metabolic Tca544 A/G Ratio 1.5 Ratio 12/07/2015 Comp Metabolic Znw716 Osmo 276 mOsmo 12/07/2015 Lipid Ord30 CHOL [...] 29.7 pg 12/07/2015 Cbc With Differential Ord2 Meagher% 9.4 % 12/07/2015 Cbc With Differential Ord2 [...] 1.41 K/ul 12/07/2015 Cbc With Differential Ord2 Meagher ABS# 0.5 K/ul 12/07/2015 Cbc With Differential [...] Ord30 C/HDL 2.4 Ratio 03/07/2015 Comp Metabolic Lfk385 NA 136 mEq/L 03/07/2015 Comp Metabolic Cne514 K 4.0 mEq/L 03/07/2015 Comp Metabolic Nsl370 CL 100 mEq/L 03/07/2015 Comp Metabolic Rir999 CO2 31.0 mEq/L 03/07/2015 Comp Metabolic Xsn378 ANION GAP 9 03/07/2015 Comp Metabolic Fkr363 GLUCOSE 93 mg/dL 03/07/2015 Comp Metabolic Zqp483 Creat 1.1 mg/dL 03/07/2015 Comp Metabolic Inb579 eGFR 55 ml/min/1.73m2 03/07/2015 Comp Metabolic Ngf577 BUN 16 mg/dL 03/07/2015 Comp Metabolic Mku021 B/C Ratio 15.2 Ratio 03/07/2015 Comp Metabolic Sdk823 CALCIUM 9.7 mg/dL 03/07/2015 Comp Metabolic Zub051 ALK PHOS 63 U/L 03/07/2015 Comp Metabolic Uul699 AST(SGOT) 21 U/L 03/07/2015 Comp Metabolic Gtu770 ALT(SGPT) 16 U/L 03/07/2015 Comp Metabolic Ahh892 BILI T 0.7 mg/dL 03/07/2015 Comp Metabolic Sll670 ALBUMIN 4.3 g/dL 03/07/2015 Comp Metabolic Ewj170 TPRO 7.0 g/dL 03/07/2015 Comp Metabolic Qzz846 GLOB 2.7 g/dL 03/07/2015 Comp Metabolic Qfh137 A/G Ratio 1.6 Ratio 03/07/2015 Comp Metabolic Guv176 Osmo 273 mOsmo 03/07/2015 Cbc With Differential [...] VACC NO PRSV 3 YRS+ IM CPT-4: 09786 2017 IIV4 VACC NO PRSV 3 YRS+ IM CPT-4: 28635 2017 FLU VAC NO PRSV 4 ISIDORO 3 YRS+ CPT-4: 40326 2017 ADMIN INFLUENZA VIRUS VAC CPT-4: G0008 2017 TRIAMCINOLONE ACET INJ NOS CPT-4: J3301 03/07/2016 ADMIN INFLUENZA VIRUS VAC Formatting Model/CDA Sections, Assigned to CPT- 4: W4019Ihqyufh 03/07/2015 FLU VACC 4 ISIDORO 3 YRS PLUS IM SNOMED CT: 09516472 CPT-4: 70501 03/07/2015 Vital Signs Date Vital 11/03/2017 Blood Pressure 1: 140/72 Code: 8480-6 BMI: 23.1 Code: 36862-7 Heart Rate 1: 64 bpm Height: 5'8" SpO2: 97% Weight: 154 lbs 01/14/2017 Blood Pressure 1: 142/72 Code: 8480-6 BMI: 22.0 Code: 31913-4 Heart Rate 1: 60 bpm Height: 5'8" SpO2: 97% Weight: 147 lbs 03/07/2016 Blood Pressure 1: 130/92 Code: 8480-6 Heart Rate 1: 72 bpm Height: Respiratory Rate: 16 bpm SpO2: 97% Temperature: 36.6 (C) / 97.9 (F) Weight: 12/06/2015 Blood Pressure 1: 122/70 Code: 8480-6 BMI: 24.9 Code: 19191-7 Heart Rate 1: 63 bpm Height: 5'8" SpO2: 97% Weight: 166 lbs 03/07/2015 Blood Pressure 1: 130/76 Code: 8480-6 BMI: 25.4 Code: 83745-7 Heart Rate 1: 58 bpm Height: 5'8" [...] data Encounters Encounter Performer Location Codes Date 12178 EST. PATIENT, LEVEL II Diagnosis: Laceration without foreign body, left lower leg, initial encounter[ICD10: S81.812A] Mary Dudley MD, [facility] CPT-4: 75614 11/03/2017 ([id number]) 31324 EST. PATIENT, LEVEL IV Diagnosis: Essential (primary) hypertension[ICD10: I10] Diagnosis: Mixed hyperlipidemia[ICD10: E78.2] Ethel Dudley MD, [facility] CPT- 4: 13435 01/14/2017 ([id number]) 01613 EST. PATIENT, LEVEL III Diagnosis: Otalgia, left ear[ICD10: H92.02] Mary Dudley MD, [facility] CPT- 4: 81128 03/07/2016 ([id number]) 80428 EST. PATIENT, LEVEL III Diagnosis: Essential (primary) hypertension[ICD10: I10] Diagnosis: Mixed hyperlipidemia[ICD10: E78.2] Ethel Dudley MD, [facility] CPT- 4: 78667 12/06/2015 ([id number]) OFFICE VISIT, NEW - LEVEL 4 Diagnosis: Other secondary hypertension[ICD10: I15.8] Diagnosis: Hyperlipidemia, unspecified[ICD10: E78.5] Ethel Dudley MD, [facility] CPT-4: 35329 03/07/2015 Plan of Care Planned Activity Notes Codes Status Date Patient Education: Patient Medication Summary Completed 01/30/2018 Care Plan: Cbc With Differential Pending 01/30/2018 Care Plan: Comp Metabolic Pending 01/30/2018 Care Plan: Tsh Pending 01/30/2018 Care Plan: Lipid Pending 01/30/2018 Appointment: Nurse Visit 11/06/2017 Visit Plan: Wound Instructions - Pt was instructed to keep the wound clean, wash with antibacterial soap, use medihoney as directedt, call if redness, pustular drainage, or any other acute concerns. 11/03/2017 [facility] [phone] [phone] (15 min) Moderate 11/03/2017 Patient Education: [...] medications. 01/14/2017 [facility] [phone] [facility] [place] (15 min) Moderate 01/14/2017 Patient Education: [...] of plan. 03/07/2016 Appointment: Mary Michael WPtel: [phone] [phone] (10 min) Simple 03/07/2016 Patient Education: Patient Medication Summary Completed 03/07/2016 Patient Education: Patient Medication Summary Completed 12/08/2015 Care Plan: [facility]AM[facility]APHYDIGITAL [facility]79[facility]6 Pending 12/08/2015 Visit Plan: Hypertension - well [...] Summary Completed 12/06/2015 [facility] [phone] [facility] (15 min) Moderate 11/22/2015 Visit Plan: Hypertension [...] medications. 03/07/2015 Appointment: Ethel Dudley [facility]el[facility] New Patient 03/07/2015 Patient Education: Patient [...]
--- OUTSIDE RECORDS SUMMARY | 2018-11-13 08:25 | XMS REPORT | Continuity of Care Document ---
Author Organization Unknown Address Unknown Allergies Active Description Code Type Severity Reaction Onset Reported/Identified Relationship to Patient Clinical Status Yes No Known Drug Allergies [id number] Drug Allergy Unknown N/A 12/07/2010 Medications There is no data. Problems Date Dx Coded Attending Type Code Diagnosis Diagnosed By 12/07/2010 Ot 211.3 BENIGN NEOPLASM LG BOWEL 12/07/2010 Ot V16.0 FAMILY HX-GI MALIGNANCY 12/07/2010 Ot V67.09 SURGERY FOLLOW- UP, OTHER SURGERY 01/30/2011 MAKENNA CHATMAN DO V05.8 ZOSTAVAX DX 12/31/2013 TOO LORENZO MD Ot 211.3 BENIGN NEOPLASM LG BOWEL 12/31/2013 TOO LORENZO MD Ot V76.51 SCREEN MAL NEOP-COLON 01/27/2015 MARY SALVADOR MOTION GRAPHICS ARTIST Ot V76.12 01/11/2016 Ot V76.12 OTH SCREEN MAMMO- MALIGN NEOPLASM OF MORRO 01/11/2016 Ot 733.90 BONE CARTILAGE DIS NOS 01/11/2016 Ot V76.12 OTH SCREEN MAMMO- MALIGN NEOPLASM OF MORRO 01/11/2016 FRAN AKBAR MD Ot V76.12 OTH SCREEN MAMMO-MALIGN NEOPLASM OF MORRO 01/11/2016 FRAN AKBAR MD Ot 627.2 SYMPT MENOPAUSE OR FEMALE CLIMACTERIC ST 01/11/2016 FRAN AKBAR MD Ot V76.12 OTH SCREEN MAMMO-MALIGN NEOPLASM OF MORRO 01/11/2016 TOO LORENZO MD Ot V72.84 EXAM PRE-OPERATIVE NOS 01/11/2016 MARY SALVADOR MOTION GRAPHICS ARTIST Ot V76.12 OTH SCREEN MAMMO-MALIGN NEOPLASM OF MORRO 01/11/2016 Ot V76.12 OTH SCREEN MAMMO- MALIGN NEOPLASM OF MORRO 01/11/2016 Ot 733.90 BONE CARTILAGE DIS NOS 01/11/2016 Ot V76.12 OTH SCREEN MAMMO- MALIGN NEOPLASM OF MORRO 01/11/2016 FRAN AKBAR MD Ot V76.12 OTH SCREEN MAMMO-MALIGN NEOPLASM OF MORRO 01/11/2016 FRAN AKBAR MD Ot 627.2 SYMPT MENOPAUSE OR FEMALE CLIMACTERIC ST 01/11/2016 FRAN AKBAR MD Ot V76.12 OTH SCREEN MAMMO-MALIGN NEOPLASM OF MORRO 01/11/2016 TOO LORENZO MD Ot V72.84 EXAM PRE-OPERATIVE NOS 01/11/2016 MARY SALVADOR MOTION GRAPHICS ARTIST Ot V76.12 OTH SCREEN MAMMO-MALIGN NEOPLASM OF MORRO 01/11/2016 JAMIE DUVAL SOLUTIONS CONSULTANT Ot M85.9 DISORDER OF BONE DENSITY AND STRUCTURE, 01/12/2016 JAMIE DUVAL SOLUTIONS CONSULTANT Ot M85.9 DISORDER OF BONE DENSITY AND STRUCTURE, 01/12/2016 LANIE MATUTE MD Ot Z12.31 ENCNTR SCREEN MAMMOGRAM FOR MALIGNANT NE 01/16/2016 LNAIE MATUTE MD Ot Z12.31 ENCNTR SCREEN MAMMOGRAM FOR MALIGNANT NE 02/05/2016 LANIE MATUTE MD Ot Z12.31 ENCNTR SCREEN MAMMOGRAM FOR MALIGNANT NE 02/05/2016 JAMIE DUVAL SOLUTIONS CONSULTANT Ot Z13.820 ENCOUNTER FOR SCREENING FOR OSTEOPOROSIS 01/13/2017 JAMIE DUVAL SOLUTIONS CONSULTANT Ot Z12.31 ENCNTR SCREEN MAMMOGRAM FOR MALIGNANT NE 01/16/2017 Ot V76.12 OTH SCREEN MAMMO- MALIGN NEOPLASM OF MORRO 01/16/2017 FRAN AKBAR MD Ot V76.12 OTH SCREEN MAMMO-MALIGN NEOPLASM OF MORRO 01/16/2017 FRAN AKBAR MD Ot 627.2 SYMPT MENOPAUSE OR FEMALE CLIMACTERIC ST 01/16/2017 FRAN AKBAR MD Ot V76.12 OTH SCREEN MAMMO-MALIGN NEOPLASM OF MORRO 01/16/2017 TOO LORENZO MD Ot V72.84 EXAM PRE-OPERATIVE NOS 01/16/2017 MARY SALVADOR MOTION GRAPHICS ARTIST Ot V76.12 OTH SCREEN MAMMO-MALIGN NEOPLASM OF MORRO 01/16/2017 LANIE MATUTE MD Ot Z12.31 ENCNTR SCREEN MAMMOGRAM FOR MALIGNANT NE 01/16/2017 JAMIE DUVAL SOLUTIONS CONSULTANT Ot Z13.820 ENCOUNTER FOR SCREENING FOR OSTEOPOROSIS 01/16/2017 JAMIE DUVAL SOLUTIONS CONSULTANT Ot Z12.31 ENCNTR SCREEN MAMMOGRAM FOR MALIGNANT NE 01/20/2017 JAMIE DUVAL SOLUTIONS CONSULTANT Ot Z12.31 ENCNTR SCREEN MAMMOGRAM FOR MALIGNANT NE 01/20/2017 JAMIE DUVAL SOLUTIONS CONSULTANT Ot Z12.31 ENCNTR SCREEN MAMMOGRAM FOR MALIGNANT NE 01/20/2017 JAMIE DUVAL SOLUTIONS CONSULTANT Ot Z12.31 ENCNTR SCREEN MAMMOGRAM FOR MALIGNANT NE 01/20/2017 JAMIE DUVAL SOLUTIONS CONSULTANT Ot Z12.31 ENCNTR SCREEN MAMMOGRAM FOR MALIGNANT NE 01/22/2017 JAMIE DUVAL SOLUTIONS CONSULTANT Ot Z12.31 ENCNTR SCREEN MAMMOGRAM FOR MALIGNANT NE 02/11/2017 JAMIE DUVAL SOLUTIONS CONSULTANT Ot Z12.31 ENCNTR SCREEN MAMMOGRAM FOR MALIGNANT NE 03/05/2018 Ot M85.88 OTH DISRD OF BONE DENSITY AND STRUCTURE, 03/05/2018 Ot Z12.31 ENCNTR SCREEN MAMMOGRAM FOR MALIGNANT NE Procedures There is no data. Results There is no data. Encounters ACCT No. Visit Date/Time Discharge Status Pt. Type Provider Facility Loc./Unit Complaint [id number] 01/30/2011 11:13:00 01/30/2011 23:59:59 CLS Outpatient MAKENNA CHATMAN DO [id number] 11/11/2018 05:52:00 11/11/2018 10:25:00 DIS Outpatient TOO LORENZO MD [facility] PREOP COLONOSCOPY [id number] 01/16/2017 10:14:00 01/16/2017 23:59:59 CLS Outpatient JAMIE DUVAL APRN [facility] RAD SCREENING [id number] 01/11/2016 08:16:00 01/11/2016 23:59:59 CLS Outpatient LANIE MATUTE MD [facility] RAD SCREENING [id number] 01/11/2016 08:10:00 01/11/2016 23:59:59 CLS Outpatient JAMIE DUVAL APRN [facility] RAD BONE DENSITY SCREENING, SCREENING [id number] 01/05/2015 09:09:00 01/05/2015 23:59:59 CLS Outpatient MARY SALVADOR [facility] RAD SCREENING [id number] 12/31/2013 06:58:00 12/31/2013 09:30:00 DIS [facility] [id number] 12/30/2013 08:38:00 12/30/2013 23:59:59 CLS Outpatient FRAN AKBAR MD [facility] RAD SCREENING,MENOPAUSE [id number] 12/29/2013 07:47:00 12/29/2013 23:59:59 CLS Outpatient TOO LORENZO MD [facility] PREOP HISTORY POLYPS [id number] 12/14/2012 10:55:00 12/14/2012 23:59:59 CLS Outpatient FRAN AKBAR MD [facility] RAD SCREENING [id number] 11/13/2018 08:00:00 PEN Preadmit TOO LORENZO MD [facility] ENDO COLON POLYPS [id number] 01/29/2018 10:24:00 Document Registration [id number] 12/12/2011 12:59:00 Document Registration [id number] 01/03/2011 09:30:00 Document Registration [id number] 12/10/2010 08:29:00 Document Registration [id number] 12/07/2010 05:46:00 Document Registration
--- OUTSIDE RECORDS SUMMARY | 2018-11-13 08:25 | XMS REPORT ---
Author Author MAKENNA CHATMAN [facility] Address [address] [place] [address] Care Team Providers Care Parking Lot Spotter Name Role Phone MAKENNA CHATMAN Unavailable PROBLEMS Type Condition ICD9-CM Code YHI67-NZ Code Onset Dates Condition Status SNOMED Code Problem Essential hypertension I10 Active 04740529 ALLERGIES No Information ENCOUNTERS Encounter Location Date Diagnosis [place] [id number] [address] Apr, Encounter for immunization Z23 [facility] [address] [id number] Mar, Essential hypertension I10 and Medication refill Z76.0 [facility] [address] [place] [id number] [place] [phone] Dec, Breast cancer screening V76.10 [place] [address] [address] Nov, [facility] [address] [place] [id number] [place] [id number] October, Abdominal discomfort in left lower quadrant 789.04 ; Diarrhea 787.91 and High risk medication use V58.69 [facility] [address] [place] [id number] [place] [phone] Mar, [facility] [address] [address] Mar, [facility] [address] [place] [id number] [place] [phone] Mar, [facility] [address] [place] [id number] [place] [phone] Mar, [facility] [address] [facility] [id number] [place] [address] Jan, IMMUNIZATIONS Vaccine Route Administration Date Status FLULAVAL QUAD 0.5ML (6 MO & UP) 2018 IM Intramuscular Apr 22, 2018 Administered PCV 13 IM Intramuscular Apr 22, 2018 Administered SOCIAL HISTORY Never Assessed REASON FOR VISIT Flu shot and pnemonia shot Elisabeth SANCHEZ PLAN OF CARE Activity Details Follow Up 1 Year Reason:PPV23 shot VITAL SIGNS MEDICATIONS Medication Instructions Dosage Frequency Start Date End Date Duration Status Atenolol 25 MG Orally Once a day 1 tablet 24h Unknown Maxzide-25 37.5-25 MG Orally Once a day 1 tablet in the morning 24h Unknown Simvastatin 20 MG Orally Once a day 1 tablet in the evening 24h Unknown Atenolol 25 MG Orally Once a day 1 tablet 24h Mar, 180 days Unknown RESULTS No Results PROCEDURES Procedure Date Ordered Result Body Site FLULAVAL QUAD 0.5ML (6 MO & UP) 2018 Apr 22, 2018 ADMN FLU VAC NO FEE SCHED SAME DAY Apr 22, 2018 SINGLE IMMUNIZATION ADMIN Apr 22, 2018 PCV 13 Apr 22, 2018 IMMUNIZATION ADMIN, EACH ADD (please include units) Apr 22, 2018 INSTRUCTIONS MEDICATIONS ADMINISTERED No Known Medications MEDICAL (GENERAL) HISTORY Type Description Date Medical History Bone density 2014 Medical History Colonscopy 2013 and every 3 years Last one by Dr. Oral Mckeon Medical History Mammogram 2014 Medical History FHX of colon cancer-mother
[2018-11-13 08:45] VITALS: BP 129/62
[2018-11-13 09:00] VITALS: BP 130/64
--- NOTE | 2018-11-13 09:24 | Pre-Op Note & Conscious Sedat ---
Pre-Operative Progress Note H&P Reviewed The H&P was reviewed, patient examined and no changes noted. Date H&P Reviewed: November 13, 2018 Time H&P Reviewed: 07:30 Conscious Sedation Pre-Proced ASA Score 2 For ASA 3 and 4: Consider anesthesia and medical clearance. Also, for patients with a history of failed moderate sedation consider anesthesia. Airway Lungs Heart ASA score ASA 1: a normal healthy patient ASA 2: a patient with a mild systemic disease (mid diabetes, controlled hypertension, obesity ASA 3: a patient with a severe systemic disease that limits activity (angina, COPD, prior Myocardial infarction) ASA 4: a patient with an incapacitating disease that is a constant threat to life (CHF, renal failure) ASA 5: a moribund patient not expected to survive 24 hrs. (ruptured aneurysm) ASA 6: a declared brain- patient whose organs are being harvested. For emergent operations, add the letter E after the classification Mallampati Classification Grade 2 Sedation Plan Analgesia, Amnesia, Plan communicated to team members, Discussed options with patient/fam, Discussed risks with patient/fam The patient is an appropriate candidate to undergo the planned procedure, sedation, and anesthesia. The patient immediately re-assessed prior to indication. TOO LORENZO MD November 13, 2018 09:24
[2018-11-13 10:44] VITALS: BP 130/64
--- NOTE | 2018-11-13 14:07 | OPERATIVE REPORT ---
DATE OF SERVICE: 11/13/2018 PROCEDURE: Colonoscopy. INDICATION FOR THE PROCEDURE: Surveillance colonoscopy due to past history of colon polyps and family history for colon cancer. DESCRIPTION OF PROCEDURE: The patient was placed in left lateral decubitus position. Prior to undergoing colonoscopy, digital rectal evaluation was performed. Anal sphincter tone was normal and the perianal reflexes intact. No abnormalities. No additional inspection of the anal canal or distal rectal vault. The colonoscope was then inserted into the rectum and under direct visualization advanced to the cecum. The cecum was identified by identification of the ileocecal valve and the cecal strap. Photographic documentation was obtained. Quality of prep was good. The patient tolerated the procedure well. FINDINGS: There are no evidence for internal or external hemorrhoids. The rectum, sigmoid colon, descending colon, transverse colon, ascending colon and cecum were unremarkable with no evidence for neoplasia, diverticular disease or vascular malformation. ASSESSMENT: Normal colonoscopy to the cecum. As this is the patient's second normal colonoscopy, I would advise considering family history, repeat colonoscopy in 4 to 5 years. I thank you for the referral of this pleasant lady. Job ID: [id number] DocumentID: [id number] Dictated Date: 11/13/2018 09:39:34 Pattern Grader Cutter Date: 11/13/2018 14:07:07 Dictated By: TOO LORENZO MD
== END 2018-11-13 09:15 | disposition home or self-care (01) ==
LOC: ENDO 07:00
PROVIDERS: ATTEND Internal Medicine
DX: Z12.11 Encounter for screening for malignant neoplasm of colon (principal); Z86.010 Personal history of colon polyps; Z80.0 Family history of malignant neoplasm of digestive organs; I10 Essential (primary) hypertension; E78.5 Hyperlipidemia, unspecified

== ENCOUNTER → 2019-02-01 | Outpatient (CLI) | payer MEDICARE ==
--- NOTE | 2019-02-01 11:07 | Diagnostic Imaging Report ---
INDICATION: Routine screening. COMPARISON: 01/29/2018 and 01/16/2017. TECHNIQUE: 2D and 3D bilateral screening mammography was performed with CAD. FINDINGS: Scattered fibroglandular densities are identified bilaterally. The parenchymal pattern is stable. No mass or malignant appearing microcalcifications are seen. The axillae are unremarkable. IMPRESSION: No mammographic features suspicious for malignancy are identified. ACR BI-RADS Category 1: Negative. Result letter will be mailed to the patient. Note: At least 10% of breast cancer is not imaged by mammography. Dictated by: Dictated on workstation # [id number]
== END ==
LOC: RAD 09:06
PROVIDERS: ATTEND Nurse Practitioner Family
DX: Z12.31 Encounter for screening mammogram for malignant neoplasm of breast (principal)
CPT/HCPCS: 77067

== ENCOUNTER → 2020-02-22 | Outpatient (CLI) | payer MEDICARE ==
[~2020-02-22] MED LIST changes: +SIMV20TA26 PO
--- NOTE | 2020-02-22 08:56 | Diagnostic Imaging Report ---
INDICATION: Postmenopausal screening. COMPARISON: 01/29/2018 FINDINGS: AP Spine L1-L4: [BMD (g/cm2): 1.154] [T-Score: -.04] [Z-Score: 1.1] [BMD Previous: 1.199] [BMD % Change: -3.8] LT Hip Neck: [BMD (g/cm2): 0.774] [T-Score: -1.9] [Z-Score: -0.1] LT Hip Total: [BMD (g/cm2):0.855] [T-Score:-1.2] [Z-Score: 0.4] [BMD Previous: 0.825] [BMD % Change: -3.8] RT Hip Neck: [BMD (g/cm2):0.803] [T-Score:-1.7] [Z-Score:0.1] RT Hip Total: [BMD (g/cm2):0.871] [T-score:-1.1] [Z-Score:0.6] [BMD Previous:0.840] [BMD % Change:3.7] *Indicates significant change from prior examination based on 95% confidence level. World Health Organization criteria for BMD interpretation classify patients as Normal (T-score at or above -1.0), Osteopenic (T-score between -1.0 and -2.5) or Osteoporotic (T-score at or below -2.5). LIMITATIONS AND MODIFICATION: None. FRACTURE RISK (FRAX SCORE): The ten year probability of (%): Major Osteoporotic Fracture: [20.4] Hip Fracture: [5.0] IMPRESSION: 1. Osteopenia (Low bone mass). 2. No significant change in bone mineral density since prior examination. 3. See below National Osteoporosis Foundation guidelines on when to potentially initiate pharmacologic therapy. Based on the National Osteoporosis Foundation Guidelines, pharmacologic treatment should be initiated in any of the following, unless clinical conditions suggest otherwise: * Any patient with prior fragility fracture of the hip or vertebrae. A spine fracture indicates 5X risk for subsequent spine fracture and 2X risk for subsequent hip fracture. * Osteoporosis (T-score <-2.5). * Postmenopausal women and men age 50 and older with low bone mass/osteopenia (T-score between -1.0 and -2.5) by DXA and 10-year major osteoporotic fracture greater than 20% or a 10-year probability of hip fracture greater than 3%. These fracture risks are supplied above in the FRAX score, if applicable. * Clinician judgement and/or patient preferences may indicate treatment for people with 10-year fracture probabilities above or below these levels. Dictated by: Dictated on workstation # [id number]
--- NOTE | 2020-02-22 11:06 | Diagnostic Imaging Report ---
INDICATION: Routine screening. COMPARISON: 02/01/2019 and 01/29/2018. TECHNIQUE: 2D and 3D bilateral screening mammography was performed with CAD. FINDINGS: Both breasts are heterogeneously dense, limiting the sensitivity of mammography. The parenchymal pattern is stable. No mass or malignant appearing microcalcifications are seen. The axillae are unremarkable. IMPRESSION: No mammographic features suspicious for malignancy are identified. ACR BI-RADS Category 1: Negative. Result letter will be mailed to the patient. Note: At least 10% of breast cancer is not imaged by mammography. Dictated by: Dictated on workstation # [id number]
== END ==
LOC: RAD 08:00
PROVIDERS: ATTEND Family Medicine
DX: Z12.31 Encounter for screening mammogram for malignant neoplasm of breast (principal); Z78.0 Asymptomatic menopausal state
CPT/HCPCS: 77063; 77067; 77080

== ENCOUNTER → 2021-02-26 | Outpatient (CLI) | payer MEDICARE ==
[~2021-02-26] MED LIST changes: +AMLO-250 PO; -AMLO5TAB9 PO
--- NOTE | 2021-02-26 10:59 | Diagnostic Imaging Report ---
INDICATION: Routine screening. COMPARISON: 02/22/2020 and 02/01/2019. TECHNIQUE: 2D and 3D bilateral screening mammography was performed with CAD. FINDINGS: Both breasts are heterogeneously dense, limiting the sensitivity of mammography. No mass or malignant-appearing microcalcifications are seen. The axillae are unremarkable. IMPRESSION: No mammographic features suspicious for malignancy are identified. ACR BI-RADS Category 1: Negative. Result letter will be mailed to the patient. Note: At least 10% of breast cancer is not imaged by mammography. Dictated by: Dictated on workstation # [id number]
== END ==
LOC: RAD 07:30
PROVIDERS: ATTEND Family Medicine
DX: Z12.31 Encounter for screening mammogram for malignant neoplasm of breast (principal)
CPT/HCPCS: 77063; 77067

== ENCOUNTER → 2022-03-05 | Outpatient (CLI) | payer MEDICARE ==
--- NOTE | 2022-03-05 12:44 | Diagnostic Imaging Report ---
INDICATION: Routine screening. COMPARISON: 02/26/2021 and 02/22/2020. TECHNIQUE: 2D and 3D bilateral screening mammography was performed with CAD. FINDINGS: Both breasts are heterogeneously dense, limiting the sensitivity of mammography. The parenchymal pattern is stable. No mass or malignant-appearing microcalcifications are seen. The axillae are unremarkable. IMPRESSION: No mammographic features suspicious for malignancy are identified. ACR BI-RADS Category 1: Negative. Result letter will be mailed to the patient. Note: At least 10% of breast cancer is not imaged by mammography. Dictated by: Dictated on workstation # [id number]
--- NOTE | 2022-03-05 15:34 | Diagnostic Imaging Report ---
INDICATION: 76-year-old asymptomatic postmenopausal female COMPARISON: 02/22/2020 FINDINGS: AP Spine L1-L4: [BMD (g/cm2): 1.259] [T-Score: 0.5] [Z-Score: 2.1] [BMD Previous: 1.154] [BMD % Change: 9.1*] LT Hip Neck: [BMD (g/cm2): 0.793] [T-Score: -1.8] [Z-Score: 0.2] LT Hip Total: [BMD (g/cm2):0.886] [T-Score:-1.0] [Z-Score: 0.8] [BMD Previous: 0.855] [BMD % Change: 3.6] RT Hip Neck: [BMD (g/cm2):0.876] [T-Score:-1.2] [Z-Score:0.8] RT Hip Total: [BMD (g/cm2):0.889] [T-score:-0.9] [Z-Score:0.8] [BMD Previous:0.871] [BMD % Change:2.1] *Indicates significant change from prior examination based on 95% confidence level. World Health Organization criteria for BMD interpretation classify patients as Normal (T-score at or above -1.0), Osteopenic (T-score between -1.0 and -2.5) or Osteoporotic (T-score at or below -2.5). LIMITATIONS AND MODIFICATION: None. FRACTURE RISK (FRAX SCORE): Not applicable as patient is being treated for osteoporosis. IMPRESSION: 1. Osteopenia (Low bone mass). 2. There has been a statistically significant increase in BMD since prior exam, detailed above. 3. Consider follow-up DEXA and 24 months to reassess response to therapy. Dictated by: Dictated on workstation # [id number]
== END ==
LOC: RAD 10:00
PROVIDERS: ATTEND Family Medicine
DX: Z12.31 Encounter for screening mammogram for malignant neoplasm of breast (principal); M85.89 Other specified disorders of bone density and structure, multiple sites; Z78.0 Asymptomatic menopausal state
CPT/HCPCS: 77063; 77067; 77080

== ENCOUNTER → 2023-03-06 | Outpatient (CLI) | payer MEDICARE ==
--- NOTE | 2023-03-06 13:54 | Diagnostic Imaging Report ---
INDICATION: Routine screening. Comparison is made with prior mammogram 03/05/2022 and 02/26/2021. 2-D and 3-D bilateral screening mammography was performed with CAD. The current study was also evaluated with a Computer Aided Detection (CAD) system. Both breasts are heterogeneously dense, limiting the sensitivity of mammography. The parenchymal pattern is stable. No mass or malignant-appearing microcalcifications are seen. Axillae are unremarkable. IMPRESSION: BI-RADS Category 1 No mammographic features suspicious for malignancy are identified. ACR BI-RADS Category 1: Negative. Result letter will be mailed to the patient. Note: At least 10% of breast cancer is not imaged by mammography. Dictated by: Dictated on workstation # [id number]
== END ==
LOC: RAD 11:09
PROVIDERS: ATTEND Family Medicine
DX: Z12.31 Encounter for screening mammogram for malignant neoplasm of breast (principal)
CPT/HCPCS: 77063; 77067

== ENCOUNTER → 2023-04-15 | Outpatient (RCR) | payer MEDICARE | END | disposition home or self-care (01) | PROVIDERS: ATTEND Orthopaedic Surgery | DX: Z47.1 Aftercare following joint replacement surgery (principal); Z96.651 Presence of right artificial knee joint ==

== ENCOUNTER 2023-04-29 08:35 | Outpatient (RCR) | payer MEDICARE | END 2023-04-29 13:09 | disposition home or self-care (01) | PROVIDERS: ATTEND Orthopaedic Surgery | DX: Z47.1 Aftercare following joint replacement surgery (principal); Z96.651 Presence of right artificial knee joint ==